=== PATIENT | female | born 1945 | race Caucasian/White ===

== ENCOUNTER 2020-09-18 14:03 | Inpatient (IN) | payer OTHER, MEDICARE ==
[2020-09-18] VITALS (29 sets, daily range): BP systolic 60–127; BP diastolic 17–75
[~2020-09-18] VITALS: Ht 165.1 cm; Wt 56.2 kg
[~2020-09-18 14:03] MED LIST: ROCURONIUM BROMIDE 50 MG/5 ML IV ONE
--- NOTE | 2020-09-18 14:10 | NUR ---
[facility] HOME, C/P THROAT DISCOMFORT S/P TAKING A PILL 15 MINS LAWYER REAL ESTATE. PT TACHY AND HYPOXIC LAWYER REAL ESTATE SATTING 87%. PATIENT A/OX4, PATIENT'S O2 DROPPING TO 80% EVEN WITH NRB MASK. DR. KAUR AT BEDSIDE FOR EVAL.
[2020-09-18] MEDS ORDERED: ZOLP10TA2 PO (14:14)
[2020-09-18] MEDS ORDERED: PRAV40TA3 PO (14:14)
[2020-09-18] MEDS ORDERED: [UNRECOGNIZED DRUG - CODE] PO (14:14)
[2020-09-18] MEDS ORDERED: AMLO-213 PO (14:14)
[2020-09-18] MEDS ORDERED: PYRI60TA PO (14:14)
[2020-09-18] MEDS ORDERED: ALPR0.5T8 PO (14:14)
--- NOTE | 2020-09-18 14:15 | NUR ---
IV LINE ESTABLISHED, BLOOD DRAWN. PATIENT PREPPED FOR INTUBATION. RT PAGED.
--- NOTE | 2020-09-18 14:27 | NUR ---
PATIENT INTUBATED WITH SIZE 7, 22CM ON THE LIP. COLOR CHANGED, BILATERAL CHEST RISE.
[2020-09-18] MEDS ORDERED: PROPOFOL 100 ML ONE (14:28)
--- NOTE | 2020-09-18 14:47 | NUR ---
ICU 254
[2020-09-18 14:58] LABS: BASOPHILS % (AUTO) 0.3 % (0.0-2.0); EOSINOPHILS % (AUTO) 0.1 % (0.0-6.0); HEMATOCRIT 42 % (33-45); HEMOGLOBIN 13.8 g/dL (11.5-14.8); LYMPHOCYTES # (AUTO) 2.1 /CMM (0.8-4.8); LYMPHOCYTES % (AUTO) 19.1 % (20.0-44.0); MEAN CORPUSCULAR HGB CONC 33 g/dl (31.0-36.0); MEAN CORPUSCULAR VOLUME 95 fL (82-100); MONOCYTES # (AUTO) 0.7 /CMM (0.1-1.30); MONOCYTES % (AUTO) 6.8 % (2.0-12.0); NEUTROPHILS # (AUTO) 7.9 /CMM (1.8-8.9); NEUTROPHILS % (AUTO) 73.7 % (43.0-81.0); PLATELET COUNT (AUTO) 226 /CMM (150-450); RED BLOOD CELL COUNT(AUTO) 4.41 MIL/uL (4.0-5.2); WHITE BLOOD COUNT (AUTO) 10.8 K/uL (4.3-11.0)
[2020-09-18] MEDS ORDERED: PROPOFOL 100 ML IV ONE (15:00)
--- NOTE | 2020-09-18 15:01 | NUR ---
[facility] [phone]
[2020-09-18 15:04] LABS: CARBON DIOXIDE 25 mmol/L (21-32); CHLORIDE 100 mmol/L (98-107); CREATININE 1.5 mg/dL (0.6-1.3); GLUCOSE 240 mg/dL (74-106); POTASSIUM 4.1 mmol/L (3.5-5.1); SODIUM SERUM 138 mmol/L (136-145); UREA NITROGEN, BLOOD 26 mg/dL (7-18)
--- NOTE | 2020-09-18 15:10 | NUR ---
NG INSERTED 56CM ON THE NOSE. SECURELY TAPED. PLACEMENT VERIFIED BY 2 NURSES AND XRAY.
--- NOTE | 2020-09-18 15:20 | NUR ---
COVID SWAB SENT TO LAB.
--- NOTE | 2020-09-18 15:24 | NUR ---
PROPOFOL TITRATE TO EFFECT. PATIENT CAME BACK FROM CT ACCOMPANIED BY NURSE AND RT. PATIENT IN STABLE CONDITION.
[2020-09-18] MEDS ORDERED: ETOMIDATE 2 MG/ML VIAL IV ONE (15:30)
[2020-09-18] MEDS ORDERED: CLINDAMYCIN 900 MG in IV D5W 100 ML IV ONE (15:30)
[2020-09-18] MEDS ORDERED: CEFTRIAXONE 1GM BAG (ER ONLY) 1 GM/50 ML PIGGYBACK IV ONE (15:30)
[2020-09-18] MEDS ORDERED: ROCURONIUM BROMIDE 100 MG/10 ML VIAL IV ONE (15:30)
[2020-09-18] MEDS ORDERED: CEFTRIAXONE 1GM BAG (ER ONLY) 50 ML IV ONE (15:31)
--- NOTE | 2020-09-18 15:48 | NUR ---
SOLARES CATHETER INSERTED FR16 VIA STERILE TECHNIQUE. URINE SENT TO LAB.
[2020-09-18] MEDS ORDERED: ACETAMINOPHEN 650 MG/SUPP.RECT RC PRN (16:00)
[2020-09-18] MEDS ORDERED: Z GUARD REMEDY 2 OZ OINT TP PRN (16:00)
--- NOTE | 2020-09-18 16:10 | NUR ---
REPORT GIVEN TO BOOKER PIERCE.
--- NOTE | 2020-09-18 16:57 | NUR ---
patient transferred to room via acls protocol, no distress noted. Endorsed care to Jena PIERCE. Propofol infusing to floor.
--- NOTE | 2020-09-18 17:00 | NUR ---
ICU/RN: RECEIVED PT FROM ER. RECEIVED REPORT FROM MIGUELITO. PT TRANSFERRED TO ICU VIA RNEY. PT INTUBATED ETT 7.0, 22CM AT THE LIP. PLACEMENT VERIFIED. ON VENT SETTINGS ORDERED, NO ACUTE DISTRESS NOTED. RECEIVED PT ON DIPRIVAN 25MCG/KG/MIN, WILL CONTINUE AND MONITOR. LEFT NARE NG TUBE IN PLACE, PLACEMENT VERIFIED. SINUS ON TELE. PIV'S PATENT AND INTACT, NO S/S OF INFECTION OR INFILTRATION NOTED. SKIN INTACT. ALL BELONGINGS BEDSIDE. ON BILATERAL SOFT WRIST RESTRAINTS, WILL ASSESS PER PROTOCOL. ALL NEEDS WILL BE ATTENDED TO, SAFETY MEASURES TAKEN, BED IN LOW POSITION, SIDE RAILS UP, CALL LIGHT WITHIN REACH.
[2020-09-18 17:02] LABS: ABG BASE EXCESS -2.6 mmol/L; ABG OXYGEN SATURATION 94.9 % (92.0-98.5); ABG PCO2 47.7 mmHg (35.0-45.0); ABG PH 7.315 (7.350-7.450); ABG PO2 83.6 mmHg (75.0-100.0); AaDO2 581.7 mmHg; COHb 0.6 % (0.5-1.5); MetHb 0.4 % (0.0-1.5); SITE, ABG Right Radial; VENT MODE, BG AC 16 450 +5 100%
--- NOTE | 2020-09-18 17:10 | NUR ---
ICU/RN: ABG RESULTS RELAYED TO . RECEIVED ORDERS. FOLLOWED THROUGH. VENT CHANGES DONE. WILL CONTINUE TO MONITOR.
[2020-09-18] MEDS: IV NS 0.9% 1,000 ML IV PRN (17:20)
[2020-09-18] MEDS: PROPOFOL 10MG/ML 50ML 50 ML IV PRN ×2 (17:25→23:23)
[2020-09-18] MEDS: PIPERACILLIN /TAZOBACTAM 2.25 G in IV D5W 50 ML IV SCH ×2 (18:08→23:23)
[2020-09-18] MEDS: VANCOMYCIN HCL 0.75 GM in IV D5W 250 ML IV SCH (18:36)
[2020-09-18] MEDS ORDERED: IV NS 0.9% 250 ML IV ONE (19:00)
--- NOTE | 2020-09-18 19:00 | NUR ---
ICU/RN: PT DESATURATING AND HYPOTENSIVE. RELAYED INFORMATION TO . RECEIVED ORDERS TO DECREASE PEEP TO 10, BOLUS OF 250 ML NS AND IF O2 SAT REMAINS BELOW 90% TO DO AN ABG. PT SUCTIONED. ORDERS FOR LEVOPHED RECEIVED. WILL FOLLOW THROUGH.
[2020-09-18] MEDS: NOREPINEPHRINE 8 MG in IV NS 0.9% 242 ML IV PRN (19:20)
--- NOTE | 2020-09-18 19:45 | NUR ---
ICU/INSTALLATION MANAGER RECEIVED REPORT FROM DAY NURSE. SEE FLOWSHEET FOR ASSESSMENT,THERE IS NO SKIN ISSUES THAT NEED TO BE ADDRESSED. PT IS ALERT X2-3, DESPITE BEING ON SEDATION, PT IS ABLE TO FOLLOW SIMPLE COMMANDS. PT IS ORALLY INTUBATED, TOLERATING CURRENT VENT SETTINGS WITH SATURATION AT 88-90%. PT WAS TURN AND REPOSITION FOR COMFORT AND CARE. WILL CONTINUE TO MONITOR THIS PT, NO ACUTE DISTRESS SEEN AT THIS TIME.DAY RN STATED LEVO FOR LOW BP, WILL CONTINUE TO MONITOR PT'S BP.
--- NOTE | 2020-09-18 20:10 | NUR ---
ICU/SERVER ASSISTANT NOTIFIED MD ABOUT PICC LINE DUE TO PT CURRENTLY ON LEVO, PT HOWEVER IS REFUSING IT. THEN OF WITH MIDLINE. LEVO IS AT 0.1MCG WITH BP IN THE 80'S. ALSO AT THIS TIME SEDATION IS GOING AT 20MCG FROM 25MCG WHICH WAS REPORTED. 2000-CHARGE NURSE CALLED NURSING OFFICE TO GET MIDLINE NURSE TO START LINE ON THE PT DUE TOP PRESSORS.
--- NOTE | 2020-09-18 21:10 | NUR ---
ICU/LABOR RELATIONS DIRECTOR 2029-NOTIFIED ORT. NURSE CIRO ABOUT LOW BP OF 70/32, THE LEVO WAS THEN INCREASED TO 0.2 FROM 0.1MCG. WILL CONTINUE TO CLOSELY MONITOR THIS PT'S BP. PT STILL REMAINS FAIRLY AWAKE DESPITE BEING ON SEDATION. 2100-PT IS VERY AWAKE THE SEDATION WAS INCREASED BY NIGHT RN CIRO, WILL CONTINUE TO MONITOR THIS PT AND HER Saturation.
[2020-09-18] MEDS: ONDANSETRON HCL/PF 4 MG/2 ML VIAL IVP PRN (23:23)
[2020-09-19] VITALS (95 sets, daily range): BP systolic 60–153; BP diastolic 16–62
[2020-09-19] MEDS ORDERED: PANTOPRAZOLE 40 MG VIAL IV SCH (01:00)
--- NOTE | 2020-09-19 01:00 | NUR ---
ICU/CHOKE REAMER 2330-PT WAS TURNED AND REPOSITIONED, HOWEVER PT JUST COMPLAINED ABOUT ABDOMINAL PAIN AND NAUSEA. NOTIFIED CHARGE NURSE TAMMY ABOUT THIS, ZOFRAN IVP GIVEN. WILL CONTINUE TO MONITOR THIS PT. 2400-BLOOD PRESSURE REMAINS LOW, NOTIFIED CHARGE NURSE WHO THEN INCREASED THE LEVO TO 0.3MCG FROM 0.2MCG, PT'S BP IS 88/45 WITH HEART RATE 78. WILL MONITOR THIS PT AND BP. 2430-OBTAINED AN ORDER FOR KUB FOR THE ABDOMINAL PAIN, PT HAS HX OF DIVERTICULITIS THIS WAS OBTAINED FROM SISTER WHO CALLED FROM [place].
--- NOTE | 2020-09-19 01:35 | NUR ---
ICU/CHRISTMAS TREE GROWER PT IS NOW GOING IN AND OUT OF JUNCTIONAL, FROM SINUS RHYTHM TO JUNCTIONAL. WILL MONITOR THIS PT.
--- NOTE | 2020-09-19 02:00 | NUR ---
ICU/COMMERCIAL COORDINATOR 0100-SISTER FILEMON CALLED FROM [place], GAVE UPDATE ON PT'S CONDITION. 0130-PT'S BELONGING LIST WAS UPDATED, PT HAS 140 IN DUMONT. A[place]O THERE IS 2 ENVELOPES OF DUMONT IN PT'S BELONGINGS. PT REFUSED TO PUT INTO SAFE. ALSO PT HAS CREDIT CARD, WHICH WERE UPDATED. 0200-PT'S BP IS LOW, NOTIFIED RN ABOUT THIS. PT IS 88/25 WITH HEART RATE 79, LEVO WAS INCREASED TO 0.5MCG FROM 0.4MCG. WILL MONITOR THIS PT AND HER BP.
--- NOTE | 2020-09-19 02:00 | NUR ---
ICU/WELDER PLASTIC-SISTER FILEMON [phone]
[2020-09-19] MEDS: PROPOFOL 10MG/ML 50ML 50 ML IV PRN ×4 (02:03→20:30)
[2020-09-19] MEDS ORDERED: NOREPINEPHRINE 8MG/250ML RTU 250 ML IV ONE (03:09)
--- NOTE | 2020-09-19 03:52 | NUR ---
ICU/CRAB BUTCHER PT WAS GIVEN AM CARE, PT TOLERATED THIS WELL. PT REMAINS ON CURRENT VENT SETTINGS. WILL CONTINUE TO MONITOR THIS PT AND HER SATURATION ALONG WITH HER BP. .
[2020-09-19] MEDS: NOREPINEPHRINE 8 MG in IV NS 0.9% 242 ML IV PRN ×2 (04:04→07:46)
--- NOTE | 2020-09-19 04:05 | NUR ---
ICU/BUSINESS BROKER INCREASED LEVO TO 0.6MCG FROM 0.5, 71/16 WITH A HEART RATE 79. FOR LOW BP, BY CHARGE NURSE. WILL MONITOR THIS PT'S BP.
[2020-09-19 04:37] LABS: BASOPHILS % (AUTO) 0.1 % (0.0-2.0); EOSINOPHILS % (AUTO) 0.5 % (0.0-6.0); HEMATOCRIT 37 % (33-45); HEMOGLOBIN 12.5 g/dL (11.5-14.8); LYMPHOCYTES # (AUTO) 0.8 /CMM (0.8-4.8); LYMPHOCYTES % (AUTO) 9.2 % (20.0-44.0); MEAN CORPUSCULAR HGB CONC 34 g/dl (31.0-36.0); MEAN CORPUSCULAR VOLUME 94 fL (82-100); MONOCYTES # (AUTO) 0.3 /CMM (0.1-1.30); MONOCYTES % (AUTO) 3.5 % (2.0-12.0); NEUTROPHILS # (AUTO) 7.9 /CMM (1.8-8.9); NEUTROPHILS % (AUTO) 86.7 % (43.0-81.0); PLATELET COUNT (AUTO) 101 /CMM (150-450); RED BLOOD CELL COUNT(AUTO) 3.95 MIL/uL (4.0-5.2); WHITE BLOOD COUNT (AUTO) 9.1 K/uL (4.3-11.0)
[2020-09-19 04:47] LABS: CALCIUM, SERUM 7.4 mg/dL (8.5-10.1); CARBON DIOXIDE 22 mmol/L (21-32); CHLORIDE 106 mmol/L (98-107); CREATININE 1.9 mg/dL (0.6-1.3); GLUCOSE 140 mg/dL (74-106); MAGNESIUM 1.7 mg/dL (1.8-2.4); PHOSPHORUS 2.8 mg/dL (2.5-4.9); POTASSIUM 4.2 mmol/L (3.5-5.1); SODIUM SERUM 140 mmol/L (136-145); UREA NITROGEN, BLOOD 33 mg/dL (7-18)
[2020-09-19 04:58] LABS: CHOLESTEROL 116 mg/dL (<200); HDL CHOLESTEROL 42 mg/dL (40-60); LDL 45 mg/dL (0-99); THYROID STIMULATING HORMONE 1.533 uIU/mL (0.358-3.74); TRIGLYCERIDES 285 mg/dL (30-150)
[2020-09-19] MEDS: IV NS 0.9% 1,000 ML IV PRN ×2 (05:15→23:01)
[2020-09-19] MEDS: PIPERACILLIN /TAZOBACTAM 2.25 G in IV D5W 50 ML IV SCH ×4 (05:25→23:01)
--- NOTE | 2020-09-19 05:55 | NUR ---
Pt received intubated on [facility] vent with noted setting. At 1900 per md orders peep was decreased from 10 to 5 due to low bp. MD was made aware of pt desaturating at peep of 5. Per MD follow up abg if spo2 remains below 90%. Pt tolerating vent setting well. No sob or distress noted. Vent to red outlet. Continue current care plan and monitor for any changes. Addendum: 09/19/20 at 0601 by NEIL LIZAMA RT Amended: Links added.
--- NOTE | 2020-09-19 06:56 | NUR ---
ICU/SENIOR TECHNICAL SUPPORT ANALYST CRITICAL XRAY OF POSSIBLE PNEUMOTHORAX TO LEFT SIDE, CHARGE NURSE AWARE. RADIOLOGIST SAID TO FOLLOW UP IN 1 HOUR.
--- NOTE | 2020-09-19 09:22 | NUR ---
received pt from indoor landscape architect, calmly sedated on Diprivan at 25mcg, follows commands, SR, intubated, lungs congested, no edema, NG clamped, f/c OK output, receiving levo at 0.6mcg/min, v/s stable, no pain, pt turned and repositioned.
[2020-09-19] MEDS: PANTOPRAZOLE 40 MG VIAL IV SCH (09:47)
[2020-09-19] MEDS ORDERED: Magnesium 1GM/D5W 100ML PREMIX 100 ML IV SCH (10:00)
[2020-09-19] MEDS: ALBUTEROL HALF STRENGTH 1.25 MG/3 ML VIAL.NEB NEB SCH ×4 (10:54→23:55)
[2020-09-19] MEDS: IPRATROPIUM NEB FS 0.5 MG/2.5 ML AMPUL.NEB NEB SCH ×4 (10:54→23:55)
[2020-09-19] MEDS: NOREPINEPHRINE 32 MG in IV NS 0.9% 218 ML IV PRN ×2 (11:11→21:45)
--- NOTE | 2020-09-19 16:34 | NUR ---
pt is resting in the bed, sedated on diprivan at 30mcg, SR, on the vent, sat well, OK urine output, receiving levo at 0.8mcg, v/s stable, no pain, pt cleaned, changed and repositioned q2hrs.
[2020-09-19] MEDS: VANCOMYCIN HCL 0.75 GM in IV D5W 250 ML IV SCH (18:21)
--- NOTE | 2020-09-19 19:29 | NUR ---
VENTILATION EQUIPMENT TENDER RCD PT W/DX ASP PNA; PT IS NSR ON MONITOR WITH LEVOPHED @ 0.7 MCG/KG/MIN TO MAINTAIN SBP >90. SEDATED ON PROPOFOL @ 40 MCG/KG/MIN; PT EASILY WAKES UP DURING STIMULI; BSWR IN PLACE PT REACHES FOR ET TUBE BUT IS EASILY REORIENTED TO SITUATION. LEFT NARE NG TUBE CLAMPED. NPO STATUS AT THIS TIME. INTUBATED 7 @ 22 AC 16 450 95% +5. CONTINUE TO MONITOR.
[2020-09-20] VITALS (88 sets, daily range): BP systolic 83–134; BP diastolic 40–61
[2020-09-20] MEDS: PROPOFOL 10MG/ML 50ML 50 ML IV PRN ×8 (00:25→21:59)
[2020-09-20] MEDS: ALBUTEROL HALF STRENGTH 1.25 MG/3 ML VIAL.NEB NEB SCH ×6 (04:25→23:28)
[2020-09-20] MEDS: IPRATROPIUM NEB FS 0.5 MG/2.5 ML AMPUL.NEB NEB SCH ×6 (04:26→23:28)
[2020-09-20] MEDS: PIPERACILLIN /TAZOBACTAM 2.25 G in IV D5W 50 ML IV SCH ×4 (05:30→23:29)
--- NOTE | 2020-09-20 05:47 | NUR ---
RT NOTE Pt rec'd orally intubated via ETT #7.0 secured @ 22CM. Pt on [facility] vent on AC mode. Pt shows no signs of resp distress or sob. ETT is patent and secured. sx'd for thick mod amt of pale yellow secretions. Alarms are set and audible. vent plugged into red outlet. ambu bag bedside. Will continue to monitor closely. Addendum: 09/20/20 at 0549 by GLORY MOYA RT Amended: Links added.
[2020-09-20 05:50] LABS: BASOPHILS % (AUTO) 0.1 % (0.0-2.0); EOSINOPHILS % (AUTO) 0.6 % (0.0-6.0); HEMATOCRIT 31 % (33-45); HEMOGLOBIN 10.5 g/dL (11.5-14.8); LYMPHOCYTES # (AUTO) 0.6 /CMM (0.8-4.8); LYMPHOCYTES % (AUTO) 4.4 % (20.0-44.0); MEAN CORPUSCULAR HGB CONC 33 g/dl (31.0-36.0); MEAN CORPUSCULAR VOLUME 95 fL (82-100); MONOCYTES # (AUTO) 0.4 /CMM (0.1-1.30); MONOCYTES % (AUTO) 2.7 % (2.0-12.0); NEUTROPHILS # (AUTO) 12.8 /CMM (1.8-8.9); NEUTROPHILS % (AUTO) 92.2 % (43.0-81.0); PLATELET COUNT (AUTO) 61 /CMM (150-450); RED BLOOD CELL COUNT(AUTO) 3.31 MIL/uL (4.0-5.2); WHITE BLOOD COUNT (AUTO) 13.9 K/uL (4.3-11.0)
[2020-09-20 06:14] LABS: ALANINE AMINOTRANSFERASE 598 U/L (12-78); ALKALINE PHOSPHATASE 56 U/L (46-116); ASPARTATE AMINOTRANSFERASE 738 U/L (15-37); BILIRUBIN,TOTAL 0.4 mg/dL (0.2-1.0); CALCIUM, SERUM 6.9 mg/dL (8.5-10.1); CARBON DIOXIDE 19 mmol/L (21-32); CHLORIDE 108 mmol/L (98-107); CREATININE 1.8 mg/dL (0.6-1.3); GLUCOSE 120 mg/dL (74-106); PHOSPHORUS 4.4 mg/dL (2.5-4.9); POTASSIUM 4.2 mmol/L (3.5-5.1); SODIUM SERUM 139 mmol/L (136-145); TOTAL PROTEIN, SERUM 4.6 g/dL (6.4-8.2); UREA NITROGEN, BLOOD 28 mg/dL (7-18)
[2020-09-20] MEDS: IV NS 0.9% 1,000 ML IV PRN ×2 (06:16→21:59)
[2020-09-20] MEDS: HYDROCORTISONE SOD SUCCINATE 100 MG/2 ML VIAL IV SCH ×3 (06:16→21:21)
--- NOTE | 2020-09-20 06:55 | NUR ---
REFRACTORY WORKER TITRATED LEVOPHED TO 0.2 MCG/KG/MIN. CONTINUE TO MONITOR.
[2020-09-20 07:23] LABS: BAND % (MANUAL) 9 % (0.0-5.0); LYMPHOCYTES % (MANUAL) 4 % (16-48); MONOCYTES % (MANUAL) 4 % (0-11.0); NEUTROPHILS % (MANUAL) 83 (42-76)
--- NOTE | 2020-09-20 08:14 | NUR ---
received pt from night supervisor, sedated at 40mcg/min, SR, intubated sat well, on 85% fio2, lung congested, no edema, NG clamped, f/c good output, receiving levo at 0.2mcg, v/s stable, no pain, restraints on.
[2020-09-20] MEDS: PANTOPRAZOLE 40 MG VIAL IV SCH (08:46)
[2020-09-20 08:48] LABS: ABG BASE EXCESS -8.1 mmol/L; ABG OXYGEN SATURATION 90.4 % (92.0-98.5); ABG PCO2 32.3 mmHg (35.0-45.0); ABG PH 7.332 (7.350-7.450); ABG PO2 59.7 mmHg (75.0-100.0); AaDO2 332.6 mmHg; COHb 0.4 % (0.5-1.5); MetHb 0.5 % (0.0-1.5); O2Hb 89.6 % (94.0-97.0); PEEP,BG 10 cm H2O; SITE, ABG Left Radial; VT, ABG 450 mL
[2020-09-20] MEDS: NOREPINEPHRINE 32 MG in IV NS 0.9% 218 ML IV PRN (09:56)
[2020-09-20 12:26] LABS: IRON, SERUM 9 ug/dl (50-175); TOTAL IRON BINDING CAPACITY 163 ug/dl (250-450)
[2020-09-20 12:49] LABS: FERRITIN 273 ng/mL (8-388)
--- NOTE | 2020-09-20 16:30 | NUR ---
pt is resting in the bed, sedated on Diprivan at 40mcg, SR, intubated sat well on 65% fi02, good urine output, receiving levo at 0.1mcg, v/s stable, no pain, pt cleaned, changed and repositioned.
[2020-09-20] MEDS: VANCOMYCIN HCL 0.75 GM in IV D5W 250 ML IV SCH (17:44)
--- NOTE | 2020-09-20 19:00 | NUR ---
CHIP TUNER RCD PT W/DX ASP PNA; INTUBATED 7 @ 22 AC 16 450 65% +12. PT IS NSR ON MONITOR WITH LEVOPHED @0.06 MCG/KG/MIN TO MAINTAIN SBP >90. SEDATED ON PROPOFOL @ 40 MCG/KG/MIN; BSWR IN PLACE FOR SAFETY. LEFT NARE NG TUBE CLAMPED. NPO STATUS AT THIS TIME. SKIN INTACT. FOELY CATH DRAINING YELLOW URINE W/SEDIMENT. CONTINUE TO MONITOR.
--- NOTE | 2020-09-20 20:00 | NUR ---
OBSERVER HELPER PT APPEARS VERY SEDATED DECREASED DIPRIVAN TO 35 MCG/KG/MIN. CONTINUE TO MONITOR.
--- NOTE | 2020-09-20 20:00 | NUR ---
COMBATANT DIVER QUALIFIED LEVOPHED TITRATED OFF AT THIS TIME 110/54; LEVOPHED NEEDED FOR SBP>90. CONTINUE TO MONITOR.
--- NOTE | 2020-09-20 21:00 | NUR ---
BLOOD BANK ORDER CONTROL CLERK PT APPEARS VERY SEDATED DECREASED DIPRIVAN TO 30 MCG/KG/MIN. CONTINUE TO MONITOR.
--- NOTE | 2020-09-20 23:44 | NUR ---
RT NOTE Pt rec'd orally intubated via ETT #7.0 secured @ 22CM. Pt on [facility] vent on AC mode. Pt shows no signs of resp distress or sob. ETT is patent and secured. sx'd for thick small amt of pale yellow secretions. Alarms are set and audible. vent plugged into red outlet. ambu bag bedside. Will continue to monitor closely. Addendum: 09/20/20 at 2344 by GLORY MOYA RT Amended: Links added.
[2020-09-21] VITALS (69 sets, daily range): BP systolic 76–138; BP diastolic 41–70
[2020-09-21] MEDS: PROPOFOL 10MG/ML 50ML 50 ML IV PRN ×3 (03:15→21:51)
[2020-09-21 04:20] LABS: BASOPHILS % (AUTO) 0.2 % (0.0-2.0); EOSINOPHILS % (AUTO) 0.1 % (0.0-6.0); HEMATOCRIT 31 % (33-45); HEMOGLOBIN 10.2 g/dL (11.5-14.8); LYMPHOCYTES # (AUTO) 0.3 /CMM (0.8-4.8); LYMPHOCYTES % (AUTO) 1.9 % (20.0-44.0); MEAN CORPUSCULAR HGB CONC 33 g/dl (31.0-36.0); MEAN CORPUSCULAR VOLUME 93 fL (82-100); MONOCYTES # (AUTO) 0.6 /CMM (0.1-1.30); MONOCYTES % (AUTO) 3.5 % (2.0-12.0); NEUTROPHILS # (AUTO) 15.6 /CMM (1.8-8.9); NEUTROPHILS % (AUTO) 94.3 % (43.0-81.0); PLATELET COUNT (AUTO) 84 /CMM (150-450); RED BLOOD CELL COUNT(AUTO) 3.29 MIL/uL (4.0-5.2); WHITE BLOOD COUNT (AUTO) 16.5 K/uL (4.3-11.0)
[2020-09-21 05:06] LABS: BAND % (MANUAL) 7 % (0.0-5.0); LYMPHOCYTES % (MANUAL) 3 % (16-48); MONOCYTES % (MANUAL) 4 % (0-11.0); NEUTROPHILS % (MANUAL) 86 (42-76)
[2020-09-21] MEDS: HYDROCORTISONE SOD SUCCINATE 100 MG/2 ML VIAL IV SCH ×3 (05:30→20:45)
[2020-09-21] MEDS: PIPERACILLIN /TAZOBACTAM 2.25 G in IV D5W 50 ML IV SCH ×4 (05:30→23:26)
[2020-09-21 05:34] LABS: CARBON DIOXIDE 23 mmol/L (21-32); CHLORIDE 108 mmol/L (98-107); CREATININE 1.4 mg/dL (0.6-1.3); GLUCOSE 104 mg/dL (74-106); MAGNESIUM 2.7 mg/dL (1.8-2.4); PHOSPHORUS 4.1 mg/dL (2.5-4.9); POTASSIUM 4.2 mmol/L (3.5-5.1); SODIUM SERUM 139 mmol/L (136-145); UREA NITROGEN, BLOOD 27 mg/dL (7-18)
[2020-09-21] MEDS: ALBUTEROL HALF STRENGTH 1.25 MG/3 ML VIAL.NEB NEB SCH ×6 (05:36→23:36)
[2020-09-21] MEDS: IPRATROPIUM NEB FS 0.5 MG/2.5 ML AMPUL.NEB NEB SCH ×6 (05:36→23:36)
[2020-09-21 08:06] LABS: IMMUNOGLOBULIN A, SERUM 217 mg/dL (64-422); IMMUNOGLOBULIN G, SERUM 550 mg/dL (586-1602); IMMUNOGLOBULIN M, SERUM 77 mg/dL (26-217)
--- NOTE | 2020-09-21 08:25 | NUR ---
received pt from dental hygiene instructor, sedated on Diprivan at 35mcg, SR, intubated high peep, sat well, NPO, f/c good output, v/s stable, no pain, pt turned and repositioned.
[2020-09-21 08:52] LABS: ABG BASE EXCESS -3.2 mmol/L; ABG OXYGEN SATURATION 97.1 % (92.0-98.5); ABG PH 7.407 (7.350-7.450); ABG PO2 94.3 mmHg (75.0-100.0); AaDO2 332.2 mmHg; COHb 0.8 % (0.5-1.5); MetHb 0.3 % (0.0-1.5); SITE, ABG Right Radial; VENT MODE, BG AC 16 450 65% +12
[2020-09-21] MEDS: PANTOPRAZOLE 40 MG VIAL IV SCH (09:21)
[2020-09-21] MEDS: NOREPINEPHRINE 32 MG in IV NS 0.9% 218 ML IV PRN (13:25)
[2020-09-21 16:07] LABS: *ANA ANTI-CENTROMERE B AB 0.2 AI (0.0-0.9); *ANA ANTI-DNA(DS) AB, QN <1 IU/mL (0-9); *ANA ANTI-JO-1 <0.2 AI (0.0-0.9); *ANA ANTICHROMATIN ANTIBODY <0.2 AI (0.0-0.9); *ANA RNP ANTIBODIES <0.2 AI (0.0-0.9); *ANA SJOGREN'S ANTI-SS-A <0.2 AI (0.0-0.9); *ANA SJOGREN'S ANTI-SS-B <0.2 AI (0.0-0.9); *ANAANTI-SCLERODERMA-70 AB <0.2 AI (0.0-0.9); *ANASMITH AB <0.2 AI (0.0-0.9)
--- NOTE | 2020-09-21 16:32 | NUR ---
pt is resting in the bed, sedated on Diprivan at 30mcg, SR, intubated, sat well on 40% fi02 and peep of 10, NPO, f/c good urine output, receiving levo at 0.08mcg/min, v/s stable, no pain, pt cleaned, changed and repositioned.
[2020-09-21] MEDS ORDERED: NOREPINEPHRINE 8 MG in IV NS 0.9% 242 ML IV PRN (17:30)
[2020-09-21] MEDS: VANCOMYCIN HCL 0.75 GM in IV D5W 250 ML IV SCH (18:30)
--- NOTE | 2020-09-21 19:00 | NUR ---
RN NOTE RECEIVED SHIFT REPORT FROM CODY PIERCE, PATIENT IN BED, SEDATED, IN NO S/SX OF ACUTE DISTRESS AT THIS TIME. PATIENT'S BREATHING IS EVEN AND UNLABORED, WITH ET TUBE CONNECTED TO MECHANICAL VENTILATOR WITH SETTINGS PRESCRIBED, TOLERATING WELL, SATURATING AT 99%. PATIENT ON BEDSIDE MONITOR READING SR, HR IS 84. NOTED NASO GASTRIC TUBE AT LEFT NARE INTACT, PLACEMENT WAS CHECKED BY AUSCULTATION AND ASPIRATION OF GASTRIC CONTENTS. NPO STATUS MAINTAINED. NOTED LUIS ALFREDO MIDLINE INTACT WITH NS INFUSING AT 40 ML/HR, DIPRIVAN AT 30 MCG/KG/MIN, AND LEVOPHED AT 0.04 MCG/KG/MIN, IV LINE PATENT AND FLUSHING WELL,NO S/S OF INFECTION NOTED. SOFT RESTRAINTS NOTED AT BILATERAL WRISTS, VISUAL CHECKS DONE Q15 MINS, AND SKIN AND CIRCULATION WAS MONITORED. SOLARES CATHETER CONNECTED TO URINE BAG IN PLACE,DRAINING TO A CLEAR YELLOW URINE. SAFETY MEASURES IMPLEMENTED PER PROTOCOL. PATIENT BED ALARM IS ON. HEAD OF BED ELEVATED. BED IS LOCKED, IN LOWEST POSITION AND SIDE RAILS UP. CALL LIGHT WITHIN REACH OF THE PATIENT. WILL CONTINUE TO MONITOR AND REASSESS FOR ANY CHANGES.
[2020-09-22] VITALS (78 sets, daily range): BP systolic 84–147; BP diastolic 33–81
[2020-09-22] MEDS: PROPOFOL 10MG/ML 50ML 50 ML IV PRN ×7 (00:48→22:48)
[2020-09-22] MEDS: IV NS 0.9% 1,000 ML IV PRN (01:30)
[2020-09-22] MEDS: IPRATROPIUM NEB FS 0.5 MG/2.5 ML AMPUL.NEB NEB SCH ×6 (03:44→23:25)
[2020-09-22] MEDS: ALBUTEROL HALF STRENGTH 1.25 MG/3 ML VIAL.NEB NEB SCH ×6 (03:44→23:25)
[2020-09-22 04:38] LABS: BASOPHILS % (AUTO) 0.2 % (0.0-2.0); HEMATOCRIT 29 % (33-45); HEMOGLOBIN 9.6 g/dL (11.5-14.8); LYMPHOCYTES # (AUTO) 0.3 /CMM (0.8-4.8); LYMPHOCYTES % (AUTO) 1.4 % (20.0-44.0); MEAN CORPUSCULAR HGB CONC 34 g/dl (31.0-36.0); MEAN CORPUSCULAR VOLUME 92 fL (82-100); MONOCYTES # (AUTO) 0.7 /CMM (0.1-1.30); MONOCYTES % (AUTO) 3.7 % (2.0-12.0); NEUTROPHILS # (AUTO) 17.4 /CMM (1.8-8.9); NEUTROPHILS % (AUTO) 94.7 % (43.0-81.0); PLATELET COUNT (AUTO) 52 /CMM (150-450); RED BLOOD CELL COUNT(AUTO) 3.11 MIL/uL (4.0-5.2); WHITE BLOOD COUNT (AUTO) 18.4 K/uL (4.3-11.0)
[2020-09-22] MEDS: HYDROCORTISONE SOD SUCCINATE 100 MG/2 ML VIAL IV SCH ×3 (04:47→21:10)
[2020-09-22 04:57] LABS: ALBUMIN 1.9 g/dL (3.4-5.0); BILIRUBIN,DIRECT 0.3 mg/dL (0.0-0.2); BILIRUBIN,TOTAL 0.7 mg/dL (0.2-1.0); CALCIUM, SERUM 7.8 mg/dL (8.5-10.1); CREATININE 1.2 mg/dL (0.6-1.3); MAGNESIUM 2.6 mg/dL (1.8-2.4); PHOSPHORUS 2.5 mg/dL (2.5-4.9); POTASSIUM 3.6 mmol/L (3.5-5.1); TOTAL PROTEIN, SERUM 5.3 g/dL (6.4-8.2)
--- NOTE | 2020-09-22 05:00 | NUR ---
CRITICAL LAB VALUE: TELEPHONE CALL FROM LAB RELAYED CRITICAL LAB VALUE FOLLOWS: FIBRINOGEN 864, D-DIMER 20. BORING MACHINE OPERATOR PRODUCTION MADE AWARE. DR LANCASTER WAS NOTIFIED. NO NEW ORDERS RECEIVED.
[2020-09-22] MEDS: PIPERACILLIN /TAZOBACTAM 2.25 G in IV D5W 50 ML IV SCH ×4 (05:06→23:33)
[2020-09-22 05:15] LABS: LYMPHOCYTES % (MANUAL) 4 % (16-48); MONOCYTES % (MANUAL) 4 % (0-11.0); NEUTROPHILS % (MANUAL) 92 (42-76)
[2020-09-22] MEDS: VANCOMYCIN 500 MG in IV D5W 100ml IV SCH ×2 (05:32→18:31)
--- NOTE | 2020-09-22 06:00 | NUR ---
CRITICAL LAB: TELEPHONE CALL FROM RADIOLOGIST DR ACUÑA REGARDING CXR RESULT: B PULMONARY INFILTRATES, R APICAL PNEUMOTHORAX. DR LANCASTER WAS NOTIFIED. NO NEW ORDERS RECEIVED AND WAS ADVISED TO FF UP WITH PULMO IN AM FOR POSSIBLE CHEST TUBE PLACEMENT. DENTURE LABORATORY TECHNICIAN MADE AWARE.
--- NOTE | 2020-09-22 07:13 | NUR ---
RN NOTE PATIENT REMAINS IN ROOM. NO SIGNS OF RESPIRATORY DISTRESS. SATURATING >95 ON CURRENT VENT SETTINGS. SEDATED, WITH DIPRIVAN INFUSING AT 30 MCG/KG/MIN. SBP SUSTAINING >90. SAFETY MEASURES IMPLEMENTED, BED IN LOWEST POSITION, LOCKED, SIDE RAILS UP, CALL LIGHT WITHIN REACH. ALL NEEDS AND ORDERS ADDRESSED DURING THE SHIFT. ALL DUE MEDS GIVEN ORDERED. PATIENT KEPT CLEAN AND COMFORTABLE WITHIN THE SHIFT. ENDORSED CRITICAL LABS OF FIBRINOGEN AND D DIMER AND R APICAL PNEUMOTHORAX PER CXR 09/22/2020 0500. ENDORSED TO JULIANN RN FOR CONTINUATION OF CARE.
[2020-09-22 08:19] LABS: ABG BASE EXCESS -2.1 mmol/L; ABG OXYGEN SATURATION 92.2 % (92.0-98.5); ABG PCO2 31.6 mmHg (35.0-45.0); ABG PH 7.446 (7.350-7.450); ABG PO2 64.3 mmHg (75.0-100.0); AaDO2 184.6 mmHg; COHb 0.7 % (0.5-1.5); MetHb 0.2 % (0.0-1.5); O2Hb 91.4 % (94.0-97.0); SITE, ABG Left Brachial; VENT MODE, BG ac16 450 40% +5
[2020-09-22] MEDS: PANTOPRAZOLE 40 MG VIAL IV SCH (09:45)
--- NOTE | 2020-09-22 19:49 | NUR ---
RT NOTES PT RECEIVED ORALLY INTUBATED WITH 7.0 ETT SECURED AT 22CM AT THE LIP LINE ON [facility] VENT ON ORDERED AC MODE SETTINGS. NO SIGNS OF RESP DISTRESS/SOB NOTED. AIRWAY PATENT. FORESTRY PROFESSOR DONE. PT SUCTIONED. ALARMS SET AND AUDIBLE. AMBUBAG AT BEDSIDE. VENT PLUGGED INTO RED OUTLET. WILL CONT TO MONITOR. Addendum: 09/22/20 at 2346 by ZEB MITCHELL RT Amended: Links added.
--- NOTE | 2020-09-22 20:00 | NUR ---
RN NOTE RECEIVED PT IN BED SLEEPING AND RESPONDS TO TOUCH, AND AROUSABLE. PT IS TOLERATING VENT SETTING, UN LABORED BREATHING, SATING ABOVE 93%. DIPRIVAN RUNNING AT 40 MCG/KH/MIN.SAFETY MEASURES IN PLACE
--- NOTE | 2020-09-22 20:11 | NUR ---
COMMAND AND CONTROL CLOSING NOTE PATIENT COMFORTABLY SEDATED ON DIPRIVAN AT 40MGC/KG/MIN. WITH EPISODE OF DESATURATION, FIO2 INCREASED TO 45%. NO DISTRESS NOTED. FOR PLANNED WEANING IN THE MORNING. NGT PATENT, INTACT IN PLACE. SR ON MONITOR. F/C DRAINING BY GRAVITY. NO S/S OF PAIN OR DISCOMFORT. UPDATES GIVEN TO SISTER FILEMON. PATIENT KEPT CLEAN AND DRY. TURNED AND REPOSITIONED Q2 AND PRN. ALL DUE MEDS GIVEN. HOB ELEVATED. SIDE RAILS UP AND LOCKED. BED KEPT AT LOWEST POSITION. CONTINUITY OF CARE ENDORSED TO PM NURSE.
[2020-09-23] VITALS (33 sets, daily range): BP systolic 102–130; BP diastolic 53–76
[2020-09-23] MEDS: PROPOFOL 10MG/ML 50ML 50 ML IV PRN ×5 (02:33→20:45)
[2020-09-23] MEDS: ALBUTEROL HALF STRENGTH 1.25 MG/3 ML VIAL.NEB NEB SCH ×6 (03:29→23:42)
[2020-09-23] MEDS: IPRATROPIUM NEB FS 0.5 MG/2.5 ML AMPUL.NEB NEB SCH ×6 (03:29→23:42)
[2020-09-23 05:13] LABS: BASOPHILS % (AUTO) 0.2 % (0.0-2.0); EOSINOPHILS % (AUTO) 0.1 % (0.0-6.0); HEMATOCRIT 30 % (33-45); HEMOGLOBIN 9.9 g/dL (11.5-14.8); LYMPHOCYTES # (AUTO) 0.5 /CMM (0.8-4.8); LYMPHOCYTES % (AUTO) 4.3 % (20.0-44.0); MEAN CORPUSCULAR HGB CONC 34 g/dl (31.0-36.0); MEAN CORPUSCULAR VOLUME 93 fL (82-100); MONOCYTES % (AUTO) 8.3 % (2.0-12.0); NEUTROPHILS # (AUTO) 10.2 /CMM (1.8-8.9); NEUTROPHILS % (AUTO) 87.1 % (43.0-81.0); RED BLOOD CELL COUNT(AUTO) 3.17 MIL/uL (4.0-5.2); WHITE BLOOD COUNT (AUTO) 11.7 K/uL (4.3-11.0)
[2020-09-23 05:16] LABS: PLATELET COUNT (AUTO) 25 /CMM (150-450)
[2020-09-23 05:24] LABS: CREATININE 1.1 mg/dL (0.6-1.3); MAGNESIUM 2.6 mg/dL (1.8-2.4); POTASSIUM 3.7 mmol/L (3.5-5.1)
--- NOTE | 2020-09-23 05:30 | NUR ---
RN NOTE RECEIVED CRITICAL LAB PLT 25 SID CIS COORDINATOR AWARE, NO FURTHER ORDER RECEIVED. PER SID FOLLOW UP WITH DR DAVIS IN AM.
[2020-09-23] MEDS: HYDROCORTISONE SOD SUCCINATE 100 MG/2 ML VIAL IV SCH ×3 (05:37→20:27)
[2020-09-23 05:41] LABS: LYMPHOCYTES % (MANUAL) 4 % (16-48); MONOCYTES % (MANUAL) 7 % (0-11.0); NEUTROPHILS % (MANUAL) 89 (42-76)
[2020-09-23] MEDS: PIPERACILLIN /TAZOBACTAM 2.25 G in IV D5W 50 ML IV SCH (06:09)
[2020-09-23] MEDS: VANCOMYCIN 500 MG in IV D5W 100ml IV SCH ×2 (06:57→18:11)
--- NOTE | 2020-09-23 07:28 | NUR ---
RN NOTE PT REMAINED STABLE DURING MY SHIFT, NO ACUTE CHANGES REPORT GIVEN TO INCOMING SHIFT FOR SYLVIE.
--- NOTE | 2020-09-23 07:30 | NUR ---
RESEARCH BIOLOGIST PATIENT IN BED, NO S/S OF DISTRESS, ON T TUBE TRACH 05/22, AC 16, TV 450, FIO2 50%, PEEP 10, TOLERATING WELL, O2 SAT 98%, SEDATED USING PROPOFOL, SEDATION VACATION SCHEDULED FOR 0900, TELE MONITOR ON, SINUS RHYTHM, L NARE NG TUBE INTACT PLACEMENT VERIFIED, SOLARES CATHETER IN PLACE, DRAINING TIFFANY URINE WITH SEDIMENT, BILATERAL SOFT WRIST RESTRAINTS ON ASSESSING FREQUENTLY AND WILL RENEW ORDER TODAY, NPO, LUIS ALFREDO MIDLINE 18G, CLEAN DRY INTACT FLUSHES WELL, NS RUNNING AT 40ML/HR, BED IN LOWEST LOCKED POSITION, SAFETY MEASURES IN PLACE, RN STATIONED RIGHT OUTSIDE THE DOOR, WILL CONTINUE TO MONITOR.
[2020-09-23] MEDS: PANTOPRAZOLE 40 MG VIAL IV SCH (08:31)
[2020-09-23 09:54] LABS: ABG OXYGEN SATURATION 90.7 % (92.0-98.5); ABG PCO2 28.2 mmHg (35.0-45.0); ABG PH 7.466 (7.350-7.450); ABG PO2 56.1 mmHg (75.0-100.0); AaDO2 232.7 mmHg; MetHb 0.8 % (0.0-1.5); O2Hb 89.1 % (94.0-97.0); SITE, ABG Right Radial; VENT MODE, BG SIMV 4 45% +5
--- NOTE | 2020-09-23 10:20 | NUR ---
PRODUCT SAFETY TESTER SPOKE TO MD MINAYA, SAID IF PLATELETS ARE LESS THAN 20 WITH A FEVER TO TRANSFUSE PLATELETS, IF PATIENT DOES NOT HAVE A FEVER THEN ONLY TRANSFUSE IF PLATELETS ARE LESS THAN 10. UPDATED REPORT GIVEN. NO FURTHER ORDERS AT THIS TIME.
[2020-09-23] MEDS: IV NS 0.9% 1,000 ML IV PRN (10:41)
--- NOTE | 2020-09-23 12:00 | NUR ---
OUTPATIENT THERAPIST SPOKE TO DR ORTIZ ABOUT PATIENT STATUS AND UPDATED ORDERS FOR ANTIBIOTICS AND TUBE FEEDING. PLACED ORDERS AND VERIFIED WITH PHARMACY. NPO STATUS REMOVED.
[2020-09-23] MEDS ORDERED: MEROPENEM 1 G in IV NS 0.9% 100 ML IV SCH (13:00)
[2020-09-23] MEDS ORDERED: JEVITY 1.2 CAL 1,000 ML BOTTLE NG PRN (13:30)
[2020-09-23] MEDS: SUCRALFATE 1 G/10 ML UDC NG SCH ×2 (13:30→18:11)
[2020-09-23] MEDS: MEROPENEM 1 G in IV NS 0.9% 100 ML IV SCH (13:31)
[2020-09-23 14:07] LABS: *SPE ALBUMIN 2.7 g/dL (2.9-4.4); *SPE ALPHA-1-GLOBULIN 0.5 g/dL (0.0-0.4); *SPE ALPHA-2-GLOBULIN 0.9 g/dL (0.4-1.0); *SPE BETA GLOBULIN 0.7 g/dL (0.7-1.3); *SPE GLOBULIN, TOTAL 2.6 g/dL (2.2-3.9); *SPE M-SPIKE Not Observed g/dL (Not Observed); *SPEGAMMA GLOBULIN 0.6 g/dL (0.4-1.8)
[2020-09-23] MEDS: JEVITY 1.2 CAL 1,000 ML BOTTLE NG PRN (16:35)
--- NOTE | 2020-09-23 18:53 | NUR ---
LANG INTERPRETER PATIENT IN BED, NO S/S OF DISTRESS, ETT IN PLACE WITH MECHANICAL VENT ON AC MODE, O2 SAT 95%, SEDATED WITH PROPOFOL 35MCG/KG/MIN, SEDATION SCORE OF 3, NO BOWEL MOVEMENT TODAY, TELE MONITOR IN PLACE, SINUS RHYTHM, L NARE NG TUBE, JEVITY RUNNING AT 20ML/HR AND IS TO BE TITRATED UP TO 65ML/HR TOLERATED, SOLARES CATHETER IN PLACE DRAINING TIFFANY URINE WITH SEDIMENT, URINE OUTPUT 552, LUIS ALFREDO MIDLINE 18G, NS RUNNING AT 40ML/HR, CLEAN DRY AND INTACT, FLUSHES EASILY. WEAN SIMV BUT PAO2 WAS 56 SO INTUBATION WAS CONTINUED. BED IN LOWEST LOCKED POSITION, SAFETY MEASURES IN PLACE.
--- NOTE | 2020-09-23 19:01 | NUR ---
END OF SHIFT NOTE: PT HAD AN UNEVENTFUL SHIFT. PT RECEIVED 1 UNIT PRBCS PER MD ORDERS. TUBE FEEDING STARTED, GLUCERNA AT 20ML/HR, GOAL 65 ML/HR AT 1230. DAILY, WOUND CARE ELLIS WAS HERE BUT WILL COME BACK WHEN PCR RESULTS COME BACK. NO OPEN WOUNDS NOTED, LOTS OF SCARRING NOTED. PT CHECKED ON HOURLY AND PRN BY NURSING STAFF.
--- NOTE | 2020-09-23 19:35 | NUR ---
CARD PLAYER OPENING NOTE RECEIVED PT IN BED. SEDATED. STANDARD/UNIVERSAL ISOLATION PRECAUTIONS IN PLACE. PT IS FULL CODE. PRESENTS WITH TRACH 7 ETT 22 AC OF 16 TV 450 AND FIO2 50% PEEP OF 5. TOLERATING WELL. NO S/S OF RESP DISTRESS OR SOB. BREATHING IS EVEN AND UNLABORED AT THIS TIME. SATURATING WELL AT 98%. PT HAS LEFT NARE NGT. AUSCULTATED WITH ANOTHER RN TO CONFIRM PLACEMENT. RESIDUAL IS LESS THAN 10CC AT THIS TIME. PT HAS JEVITY 1.2 RUNNING AT 20ML/HR. NGT FLUSHED AND PATENT. IV SITE LUIS ALFREDO MIDLINE FLUSHED ASEPTICALLY. NS RUNNING AT 40ML/HR AND DIPRIVAN AT 35MCG/KG/MIN. SOFT UCHE WRIST RESTRAINTS ON. CIRCULATION CHECKED. DVT PUMPS ON. HOB ELEVATED, SIDE RAILS UP X 2, BED IS LOCKED IN LOWEST POSITION WITH ALARM ON. ID BAND ON. WILL CONTINUE TO CLOSELY MONITOR. Addendum: 09/23/20 at 2018 by PAULINO AMBROSIO RN PT HAS SOLARES CATHETER PRESENT DRAINING YELLOW URINE, SOME SEDIMENT NOTED WILL CONT TO MONITOR.
--- NOTE | 2020-09-23 19:40 | NUR ---
PT SEDATED WITH PROPOFOL RUNNING AT 35MCG/KG/MIN. AROUSABLE, PT ABLE TO OPEN EYES. CALM AT THIS TIME.
--- NOTE | 2020-09-23 20:14 | NUR ---
PT NOTED TO HAVE TEMP OF 99.4 AT THIS TIME. ENDORSED BY AM NURSE THAT PT HAD LOW GRADE TEMP, PT RUNS WARM AND RESPONDS WELL TO NON PHARM COOLING MEASURES. TOOK OFF ONE BLANKET FOR NOW. WILL CONTINUE TO MONITOR.
--- NOTE | 2020-09-23 22:00 | NUR ---
TEMP REASSESSED 99.0 WILL CONTINUE TO MONITOR
[2020-09-24] VITALS (26 sets, daily range): BP systolic 96–123; BP diastolic 54–70
[2020-09-24] MEDS: MEROPENEM 1 G in IV NS 0.9% 100 ML IV SCH ×2 (00:30→12:31)
[2020-09-24] MEDS: SUCRALFATE 1 G/10 ML UDC NG SCH ×4 (00:30→17:05)
[2020-09-24] MEDS: PROPOFOL 10MG/ML 50ML 50 ML IV PRN ×7 (00:40→21:41)
--- NOTE | 2020-09-24 03:30 | NUR ---
PT TEMP NOTED TO BE 98.8
[2020-09-24] MEDS: IPRATROPIUM NEB FS 0.5 MG/2.5 ML AMPUL.NEB NEB SCH ×6 (03:47→23:22)
[2020-09-24] MEDS: ALBUTEROL HALF STRENGTH 1.25 MG/3 ML VIAL.NEB NEB SCH ×6 (03:47→23:22)
--- NOTE | 2020-09-24 04:32 | NUR ---
UPON ROUNDS, PT OCCASIONALLY OPENS EYES. ABLE TO SLIGHTLY MOVE FINGERS AND TOES. PT WAKES UP INTERMITTENTLY. AROUSABLE TO TOUCH. SEDATION APPROPRIATE.
[2020-09-24 05:08] LABS: BASOPHILS % (AUTO) 0.2 % (0.0-2.0); EOSINOPHILS % (AUTO) 0.1 % (0.0-6.0); HEMATOCRIT 30 % (33-45); HEMOGLOBIN 10.1 g/dL (11.5-14.8); LYMPHOCYTES # (AUTO) 0.6 /CMM (0.8-4.8); LYMPHOCYTES % (AUTO) 5.9 % (20.0-44.0); MEAN CORPUSCULAR HGB CONC 34 g/dl (31.0-36.0); MEAN CORPUSCULAR VOLUME 93 fL (82-100); MONOCYTES # (AUTO) 0.5 /CMM (0.1-1.30); MONOCYTES % (AUTO) 4.8 % (2.0-12.0); NEUTROPHILS # (AUTO) 8.5 /CMM (1.8-8.9); RED BLOOD CELL COUNT(AUTO) 3.21 MIL/uL (4.0-5.2); WHITE BLOOD COUNT (AUTO) 9.6 K/uL (4.3-11.0)
[2020-09-24 05:10] LABS: PLATELET COUNT (AUTO) 40 /CMM (150-450)
[2020-09-24 05:20] LABS: CALCIUM, SERUM 7.8 mg/dL (8.5-10.1); POTASSIUM 3.6 mmol/L (3.5-5.1)
[2020-09-24 05:26] LABS: MAGNESIUM 2.5 mg/dL (1.8-2.4); PHOSPHORUS 3.3 mg/dL (2.5-4.9)
[2020-09-24 05:58] LABS: BAND % (MANUAL) 2 % (0.0-5.0); LYMPHOCYTES % (MANUAL) 7 % (16-48); MONOCYTES % (MANUAL) 5 % (0-11.0); NEUTROPHILS % (MANUAL) 86 (42-76)
--- NOTE | 2020-09-24 06:00 | NUR ---
BED BATH DONE. NO BM NOTED.
[2020-09-24] MEDS: HYDROCORTISONE SOD SUCCINATE 100 MG/2 ML VIAL IV SCH ×3 (06:04→20:24)
[2020-09-24] MEDS: VANCOMYCIN 500 MG in IV D5W 100ml IV SCH ×2 (06:04→17:05)
--- NOTE | 2020-09-24 07:10 | NUR ---
BAG LINER NOTE RECEIVED PT IN BED. SEDATED. WITH 7 ETT 22 AC OF 16 TV 450 AND FIO2 50% PEEP OF 5. TOLERATING WELL. NO S/S OF RESP DISTRESS OR SOB NOTED AT THIS TIME. PT HAS LEFT NARE NGT. RESIDUAL IS LESS THAN 10CC AT THIS TIME. PT HAS JEVITY 1.2 RUNNING AT 20ML/HR. NGT FLUSHED AND PATENT. IV SITE LUIS ALFREDO MIDLINE FLUSHED ASEPTICALLY. NS RUNNING AT 40ML/HR AND DIPRIVAN AT 35MCG/KG/MIN. SOFT UCHE WRIST RESTRAINTS ON. CIRCULATION CHECKED. DVT PUMPS ON. SAFETY MEASURES IN PLACE, HOB ELEVATED, SIDE RAILS UP X 2, BED IS LOCKED IN LOWEST POSITION WITH ALARM ON. WILL CONTINUE TO MONITOR.
--- NOTE | 2020-09-24 07:20 | NUR ---
VIDEO GAME ENGINEER CLOSING NOTES NO SIGNIFICANT CHANGES. PT TOLERATED BED BATH. STILL ON MONITOR PRESENTING WITH NSR HR 72 AT THIS TIME. NO CHANGE IN VENT SETTINGS. PT HAS NO S/S OF RESPIRATORY DISTRESS AT THIS TIME. NO SHORTNESS OF BREATH. BREATHING IS EVEN AND UNLABORED. STILL WITH NASOGASTRIC TUBE LEFT NARE. TRACH/ETT 7 22. AC 16. TV AT 450. FIO2 50 AND PEEP OF 5. SEDATED. PT STILL ON PROPOFOL AT 35 MC/KG/MIN. IV SITES PATENT. NO S/S OF INFILTRATION NOTED. STILL RUNNING JEVITY AT 20ML/HR. NO RESIDUAL NOTED. SOLARES CATHETER STILL PRESENTING WITH YELLOW URINE WITH SEDIMENT. HOB ELEVATED 40 DEGREES. SAFETY PRECAUTIONS IN PLACE. PT ID BAND ON. BED IS LOCKED IN LOWEST POSITION WITH ALARM ON. ENDORSED TO RUY AT PT BED SIDE FOR CONTINUATION OF CARE.
[2020-09-24 10:07] LABS: *ANCANTIMYELOPEROXIDASE (MPO) <9.0 U/mL (0.0-9.0); *ANCANTIPROTEINASE 3 (PR-3) AB <3.5 U/mL (0.0-3.5)
[2020-09-24] MEDS: JEVITY 1.2 CAL 1,000 ML BOTTLE NG PRN (16:27)
[2020-09-24] MEDS: IV NS 0.9% 1,000 ML IV PRN (17:06)
--- NOTE | 2020-09-24 19:00 | NUR ---
GLAZE SUPERVISOR NOTE PT IN BED RESTING COMFORTABLY IN MODERATE HIGH BACK REST. SEDATED. WITH 7 ETT 22 AC OF 16 TV 450 AND FIO2 50% PEEP OF 5. TOLERATING WELL. NO S/S OF RESP DISTRESS OR SOB NOTED. PT HAS LEFT NARE NGT. PT HAS JEVITY 1.2 RUNNING AT 35ML/HR. NGT FLUSHED AND PATENT. IV SITE LUIS ALFREDO MIDLINE FLUSHED ASEPTICALLY. NS RUNNING AT 40ML/HR AND DIPRIVAN AT 35MCG/KG/MIN. SOFT UCHE WRIST RESTRAINTS ON. CIRCULATION CHECKED. SAFETY MEASURES IN PLACE, SIDE RAILS UP X 2, BED IS LOCKED IN LOWEST POSITION WITH ALARM ON. WILL ENDORSE TO SALVAGE MACHINE OPERATOR NURSE FOR SYLVIE.
--- NOTE | 2020-09-24 19:20 | NUR ---
CUSTOMS COMPLIANCE DIRECTOR OPENING NOTES: Rec'd pt in bed, sedated and intubated 7/22cm at the lip. On mechanical ventilation tolerating settings well. No resp distress noted. SR on tele monitor. Left nare NGT in place, patent, location verified, minimal residual noted. Jevity infusing at 35ml/hr. LUIS ALFREDO midline patent and flushed w/ NS infusing at 40ml/hr and Diprivan infusing at 35mcg/kg/min. Bilateral soft wrist restraints in place. Will check circulation per protocol. Carvalho catheter in place patent and draining urine via gravity. Safety measures in place. Will continue to monitor.
--- NOTE | 2020-09-24 21:44 | NUR ---
RT pt received on mechanical vent with current settings, intubated with ett size 7.0, 22 @lip. vent plugged in to red outlet. alarms on and audible. ambu bag at [facility]. ett patent and secure. minimal secretions suctioned via ett. no sob, no resp distress.
[2020-09-25] VITALS (29 sets, daily range): BP systolic 103–162; BP diastolic 53–100
[2020-09-25] MEDS: PROPOFOL 10MG/ML 50ML 50 ML IV PRN ×3 (00:05→08:26)
[2020-09-25] MEDS: SUCRALFATE 1 G/10 ML UDC NG SCH ×4 (00:39→17:23)
[2020-09-25] MEDS: MEROPENEM 1 G in IV NS 0.9% 100 ML IV SCH ×2 (00:39→12:33)
[2020-09-25] MEDS: IPRATROPIUM NEB FS 0.5 MG/2.5 ML AMPUL.NEB NEB SCH ×6 (03:05→23:37)
[2020-09-25] MEDS: ALBUTEROL HALF STRENGTH 1.25 MG/3 ML VIAL.NEB NEB SCH ×6 (03:05→23:38)
[2020-09-25 04:31] LABS: BASOPHILS % (AUTO) 0.2 % (0.0-2.0); EOSINOPHILS % (AUTO) 0.1 % (0.0-6.0); HEMATOCRIT 31 % (33-45); HEMOGLOBIN 10.2 g/dL (11.5-14.8); LYMPHOCYTES # (AUTO) 0.6 /CMM (0.8-4.8); LYMPHOCYTES % (AUTO) 5.1 % (20.0-44.0); MEAN CORPUSCULAR HGB CONC 33 g/dl (31.0-36.0); MEAN CORPUSCULAR VOLUME 94 fL (82-100); MONOCYTES # (AUTO) 0.4 /CMM (0.1-1.30); MONOCYTES % (AUTO) 3.3 % (2.0-12.0); NEUTROPHILS # (AUTO) 11.2 /CMM (1.8-8.9); NEUTROPHILS % (AUTO) 91.3 % (43.0-81.0); PLATELET COUNT (AUTO) 64 /CMM (150-450); RED BLOOD CELL COUNT(AUTO) 3.29 MIL/uL (4.0-5.2); WHITE BLOOD COUNT (AUTO) 12.3 K/uL (4.3-11.0)
[2020-09-25 04:46] LABS: CARBON DIOXIDE 25 mmol/L (21-32); CHLORIDE 114 mmol/L (98-107); GLUCOSE 225 mg/dL (74-106); MAGNESIUM 2.6 mg/dL (1.8-2.4); PHOSPHORUS 2.8 mg/dL (2.5-4.9); POTASSIUM 3.7 mmol/L (3.5-5.1); SODIUM SERUM 147 mmol/L (136-145); UREA NITROGEN, BLOOD 36 mg/dL (7-18)
[2020-09-25 05:04] LABS: LYMPHOCYTES % (MANUAL) 7 % (16-48); MONOCYTES % (MANUAL) 3 % (0-11.0); NEUTROPHILS % (MANUAL) 90 (42-76)
[2020-09-25] MEDS: HYDROCORTISONE SOD SUCCINATE 100 MG/2 ML VIAL IV SCH ×3 (05:29→21:18)
[2020-09-25] MEDS: VANCOMYCIN 500 MG in IV D5W 100ml IV SCH ×2 (05:30→17:23)
--- NOTE | 2020-09-25 07:02 | NUR ---
CONSTRUCTION CRAFT LABORER CLOSING NOTES: No acute changes noted throughout shift. Remains intubated on mechanical ventilation tolerating settings well. SR on tele monitor. LUIS ALFREDO midline patent and infusing Diprivan at 35mcg/kg/min and NS at 40ml/hr. Carvalho cath patent and draining urine. Kept clean/dry. All due meds given as ordered. Safety measures in place. Will endorse to oncoming nurse for SYLVIE.
--- NOTE | 2020-09-25 07:10 | NUR ---
FASHION PATTERNMAKER NOTE RECEIVED PT IN BED. SEDATED. WITH 7 ETT 22 AC OF 16 TV 450 AND FIO2 50% PEEP OF 5. TOLERATING WELL. NO S/S OF RESP DISTRESS OR SOB NOTED AT THIS TIME. PT HAS LEFT NARE NGT. RESIDUAL IS LESS THAN 10CC AT THIS TIME. PT HAS JEVITY 1.2 RUNNING AT 35ML/HR. NGT FLUSHED AND PATENT. IV SITE LUIS ALFREDO MIDLINE NS RUNNING AT 40ML/HR AND DIPRIVAN AT 35MCG/KG/MIN. SOFT UCHE WRIST RESTRAINTS ON. CIRCULATION CHECKED. DVT PUMPS ON. SAFETY MEASURES IN PLACE, HOB ELEVATED, SIDE RAILS UP X 2, BED IS LOCKED IN LOWEST POSITION WITH ALARM ON. WILL CONTINUE TO MONITOR.
[2020-09-25] MEDS ORDERED: DC PROPOFOL WHEN EXTUBATED XX PRN (09:00)
--- NOTE | 2020-09-25 10:21 | NUR ---
vent changes below per Dr. Duran for weaning trial: simv 4 ps 15 peep +5 fio2 45% pt is fully awake and follow commands. RR 24 26 BPM HR 93 - 96 bpm spo2 97% no increase work of breathing noted Addendum: 09/25/20 at 1024 by CINDY MCKEON RT Amended: Links added.
[2020-09-25 11:36] LABS: ABG BASE EXCESS -0.3 mmol/L; ABG OXYGEN SATURATION 93.3 % (92.0-98.5); ABG PCO2 29.7 mmHg (35.0-45.0); ABG PH 7.494 (7.350-7.450); ABG PO2 66.8 mmHg (75.0-100.0); AaDO2 220.3 mmHg; COHb 0.5 % (0.5-1.5); MetHb 0.2 % (0.0-1.5); O2Hb 92.6 % (94.0-97.0); PEEP,BG 5 cm H2O; SITE, ABG Right Radial; VENT MODE, BG SIMV 4 / PS 15; VT, ABG 450 mL
--- NOTE | 2020-09-25 12:10 | NUR ---
pt is awake and follow commands @ [address] Carson placed into high flow nasal cannula due to PaO2 67 mmhg. spo2 100% RR 20 BPM HR 110 bpm no sob noted Addendum: 09/25/20 at 1220 by CINDY MCKEON RT Amended: Links added.
[2020-09-25 14:09] LABS: *ANCA ATYPICAL p-ANCA <1:20 titer (Neg:<1:20); *ANCA CYTOPLASMIC (C-ANCA) <1:20 titer (Neg:<1:20); *ANCA PERINUCLEAR (P-ANCA) <1:20 titer (Neg:<1:20)
--- NOTE | 2020-09-25 17:44 | NUR ---
RN NOTES PATIENT NOTED WITH BP OF 160/93, CALLED AND SPOKE TO DR. ANTONIO AND GAVE UPDATES REGARDING PATIENT STATUS. PER MD TO ORDER AMLODIPINE 5MG DAILY. ORDER MADE AND CARRIED OUT. WILL CONTINUE TO MONITOR.
[2020-09-25] MEDS: AMLODIPINE BESYLATE 5 MG TABLET NG SCH (18:09)
[2020-09-25] MEDS: IV NS 0.9% 1,000 ML IV PRN (18:33)
--- NOTE | 2020-09-25 18:57 | NUR ---
[employer] PLASTERER NOTE PT IN BED RESTING COMFORTABLY IN MODERATE HIGH BACK REST. ALERT, UNABLE TO SPEAK CLEARLY, FOLLOW SIMPLE COMMANDS, ON HIGH FLOW OXYGEN NC 60LPM AND FIO2 60%. TOLERATING WELL. NO S/S OF RESP DISTRESS OR SOB NOTED. PT HAS LEFT NARE NGT. HOLD FEEDING, CAN GIVE MEDICATION ONLY. NGT FLUSHED AND PATENT. IV SITE LUIS ALFREDO MIDLINE FLUSHED ASEPTICALLY. NS RUNNING AT 40ML/HR. SOLARES CATHETER INTACT DRAINING CLEAR YELLOW URINE, ALL DUE MEDS GIVEN, ORAL CARE PROVIDED, ALL NEEDS MET, SAFETY MEASURES IN PLACE, SIDE RAILS UP X 2, BED IS LOCKED IN LOWEST POSITION WITH ALARM ON. 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
--- NOTE | 2020-09-25 19:45 | NUR ---
ICU/EVP [employer] PT IS NPO EXCEPT MEDS ONLY, PT HAD O/G-TUBE THAT WAS D/C'D. THIS IN TURN THEN D/C'S THE TUBE FEEDING. Addendum: 09/25/20 at 1947 by TRISTEN MARTÍNEZ EVP [employer] PT IS LEFT NARE N/G TUBE THAT IS CLAMPED. BUT PT IS STILL NPO EXCEPT MEDS
--- NOTE | 2020-09-25 19:45 | NUR ---
ICU/DENTAL ASSOCIATE RECEIVED REPORT FROM DAY NURSE. SEE FLOWSHEET FOR ASSESSMENT,THERE IS A NEW SKIN ISSUES THAT WAS FOUND AND NEEDED TO BE ADDRESSED. PT IS ALERT X2, PT IS A LITTLE LETHARGIC BUT ABLE TO FOLLOW SIMPLE COMMANDS. PT IS ON HIGH FLOW N/C, TOLERATING THIS WELL WITH SATURATION AT 95%. PT WAS TURN AND REPOSITION FOR COMFORT AND CARE. WILL CONTINUE TO MONITOR THIS PT, NO ACUTE DISTRESS SEEN AT THIS TIME. PT IS NPO AT THIS TIME WITH A LEFT NARE N/G-TUBE, MEDS ONLY PER MD CROOK.
--- NOTE | 2020-09-25 20:00 | NUR ---
ICU/CHECK CLERK UPON DOING 1999 ASSESSMENT, FOUND SACRAL REDNESS THAT IS BLANCHABLE. THIS WAS ADDRESSED ON FLOWSHEET AND ALSO PHOTO DOCUMENTATION WAS DONE. WOUND CONSULT WAS DONE, CHARGE NURSE MADE AWARE.
--- NOTE | 2020-09-25 20:41 | NUR ---
ICU/SAW SHARPENER FOLLOWED UP WITH PT THAT SHE WOULD LIKE A FLU SHOT BEFORE DISCHARGE HOME AND SHE HAD ALREADY RECEIVED THE PNA VACCINE.
--- NOTE | 2020-09-25 22:30 | NUR ---
ICU/LICENSING COURT MAGISTRATE PT WAS GIVEN ORAL CARE. PT WAS THEN PROVIDED PM CARE, WHICH SHE TOLERATED WELL. PT REMAINS ON CURRENT HIGH FLOW SETTING, WITH SATURATION AT 100%. PT WAS TURNED AND REPOSITIONED FOR COMFORT AND CARE. CALL LIGHT WITHIN REACH, NO ACUTE DISTRESS SEEN. WILL CONTINUE TO MONITOR THIS PT.
[2020-09-26] VITALS (36 sets, daily range): BP systolic 126–163; BP diastolic 73–99
[2020-09-26] MEDS: SUCRALFATE 1 G/10 ML UDC NG SCH ×4 (00:44→17:12)
[2020-09-26] MEDS: MEROPENEM 1 G in IV NS 0.9% 100 ML IV SCH ×2 (00:45→12:57)
--- NOTE | 2020-09-26 00:45 | NUR ---
ICU/BILLIARD TABLE MECHANIC PT APPEARS TO HAVE LOSE GREEN, WATERY, STOOL. PT WAS CLEANED AND REPOSTIONED FOR COMFORT AND CARE. WILL CONTINUE TO MONITOR THIS PT.
--- NOTE | 2020-09-26 02:06 | NUR ---
RT NOTE INCREASED FIO2 TO 70% DUE TO SOB. SPO2 IMPROVED. RN TRISTEN AWARE. WILL CONTINUE TO MONITOR CLOSELY.
--- NOTE | 2020-09-26 02:30 | NUR ---
ICU/FERMENTATION ENGINEER PT WAS GIVEN ORAL CARE. PT WAS THEN PROVIDED AM CARE, WHICH SHE TOLERATED WELL. PT REMAINS ON CURRENT HIGH FLOW SETTING, WITH SATURATION AT 100%. PT WAS TURNED AND REPOSITIONED FOR COMFORT AND CARE. CALL LIGHT WITHIN REACH, NO ACUTE DISTRESS SEEN. WILL CONTINUE TO MONITOR THIS PT
[2020-09-26] MEDS: IPRATROPIUM NEB FS 0.5 MG/2.5 ML AMPUL.NEB NEB SCH ×6 (03:32→23:52)
[2020-09-26] MEDS: ALBUTEROL HALF STRENGTH 1.25 MG/3 ML VIAL.NEB NEB SCH ×6 (03:32→23:52)
[2020-09-26] MEDS: HYDROCORTISONE SOD SUCCINATE 100 MG/2 ML VIAL IV SCH (04:36)
[2020-09-26 04:49] LABS: CALCIUM, SERUM 8.3 mg/dL (8.5-10.1); CARBON DIOXIDE 30 mmol/L (21-32); CHLORIDE 113 mmol/L (98-107); CREATININE 0.8 mg/dL (0.6-1.3); GLUCOSE 146 mg/dL (74-106); POTASSIUM 3.1 mmol/L (3.5-5.1); SODIUM SERUM 149 mmol/L (136-145); UREA NITROGEN, BLOOD 30 mg/dL (7-18)
[2020-09-26] MEDS: VANCOMYCIN 500 MG in IV D5W 100ml IV SCH ×2 (05:15→17:12)
--- NOTE | 2020-09-26 06:22 | NUR ---
ICU/BIG DATA SOFTWARE ENGINEER 09/26/20-CHEST XRAY SHOWS MORE FLUID ON THE LEFT LUNG, MORE SO THAN YESTERDAY XRAY. PER RADIOLOGIST FROM [facility]. NOTIFIED CHARGE NURSE AND WILL PASS ALONG TO DAY NURSE. Addendum: 09/26/20 at 0633 by TRISTEN MARTÍNEZ BIG DATA SOFTWARE ENGINEER THE MATTE CUTTER WAS NOTIFED DR CAIN, WHICH SHE SAID OK, THANK YOU NO NEW ORDERS.
--- NOTE | 2020-09-26 07:00 | NUR ---
RN NOTES RECEIVED PT ON BED, A/Ox2, UNABLE TO SPEAK CLEARLY, FOLLOWS SIMPLE COMMANDS, ON HIGH FLOW OXYGEN NC 60LPM AND FIO2 60%. TOLERATING WELL. O2 SAT WNL, NO S/S OF RESP DISTRESS OR SOB NOTED. PT HAS LEFT NARE NGT. NPO EXCEPT MEDS , NGT FLUSHED AND PATENT. LUIS ALFREDO MIDLINE SITE CLEAN, DRY AND INTACT, NS RUNNING AT 40ML/HR. SOLARES CATHETER INTACT DRAINING CLEAR YELLOW URINE, ORAL CARE PROVIDED, ALL NEEDS MET, SAFETY MEASURES IN PLACE, SIDE RAILS UP X 3, BED IS LOCKED AN IN LOWEST POSITION, CALL LIGHT WITHIN EASY REACH , WILL CONTINUE TO MONITOR .
[2020-09-26] MEDS: AMLODIPINE BESYLATE 5 MG TABLET NG SCH (08:13)
[2020-09-26 08:36] LABS: ABG BASE EXCESS 2.1 mmol/L; ABG OXYGEN SATURATION 93.9 % (92.0-98.5); ABG PCO2 35.1 mmHg (35.0-45.0); ABG PH 7.478 (7.350-7.450); ABG PO2 67.2 mmHg (75.0-100.0); AaDO2 394.2 mmHg; COHb 0.7 % (0.5-1.5); MetHb 0.1 % (0.0-1.5); O2Hb 93.1 % (94.0-97.0); SITE, ABG Right Brachial; VENT MODE, BG HIGH FLOW 60 L / 70% FIO2
[2020-09-26] MEDS ORDERED: IV 1/2NS 1000 ML 1,000 ML IV PRN (10:00)
[2020-09-26] MEDS: POTASSIUM CL. PREMIX PERIPHER. 50 ML IV SCH ×4 (11:01→14:26)
--- NOTE | 2020-09-26 12:00 | NUR ---
RN NOTES PT IS ANXIOUS AND WORRIED AT TIMES , EMOTION SUPPORT GIVEN , VSS STABLE , CONTINUE TO MONITOR .
[2020-09-26] MEDS: methylPREDNISolone SOD SUCC 125 MG/2ML VIAL IV SCH ×2 (12:15→20:19)
[2020-09-26] MEDS: PYRIDOSTIGMINE BROMIDE 60 MG TABLET PO SCH (15:48)
--- NOTE | 2020-09-26 18:00 | NUR ---
RN NOTES PT REMANINS ON HIGH FLOW O2 , VSS STABLE, PT HAD SMALL FORMED STOOL x2 ON THIS SHIFT, 1/NS AT 40CC /HR RUNNING VIA R UPPER ARM MIDLINE, SITE CLEAN, DRY AND INTACT, SR UP x3, CALL LIGHT WITHIN EASY REACH, BED LOCKED AND IN LOWEST POSITION, WILL ENDORSE TO DRY CLEANER PRESSER NURSE FOR CONTINUITY OF CARE .
--- NOTE | 2020-09-26 19:30 | NUR ---
RN NOTES RECEIVED PATIENT IN BED AOX2, UNCLEAR SPEECH BUT ABLE TO FOLLOW SIMPLE COMMANDS. BREATHING NORMAL NO SOB NOTED. DENIES ANY PAIN OR DISCOMFORT. RESPIRATION EVEN NON LABORED. CONTINUES IN HIGH FLOW OXYGEN VIA NC 60L/MIN FIO2 71%. SATURATING 100% AT THIS TIME. LT NARE NGT IN PLACE, PLACEMENT CHECKED VIA AUSCULTATION, NPO STATUS EXCEPT MEDS. TELE MONITOR READING SR/ST HR IN 97 TO 100. LUIS ALFREDO MIDLINE INTACT PATENT AND FLUSHES WELL. NS IS RUNNING AT 40ML/HR. F/C INTACT CLEAR URINE DARNING WELL TO GRAVITY. SAFETY MEASURES IN PLACE, BED IN LOW AND LOCKED POSITION SIDE RAILS UP, CALL LIGHT WITHIN REACH. WILL CONT TO MONITOR FOR SYLVIE.
--- NOTE | 2020-09-26 22:00 | NUR ---
PATIENT HAVE A LOOSE STOOL. PATIENT WAS CLEANED AND REPOSITION FOR COMFORT. DUE MEDICATION WERE GIVEN TOLERATED WELL. ALL SAFETY MEASURES IN PLACE,,,CALL LIGHT WITHIN REACH. WILL CON TO MONITOR.
--- NOTE | 2020-09-26 23:55 | NUR ---
PRN TYLENOL WAS GIVEN FOR GENERAL BODY ACHES 02/08. REPOSITION FOR COMFORT. WILL CONT TO MONITOR. ALL SAFETY MAINTAINED.
[2020-09-27] VITALS (39 sets, daily range): BP systolic 130–151; BP diastolic 66–94
[2020-09-27] MEDS: SUCRALFATE 1 G/10 ML UDC NG SCH ×4 (00:12→17:08)
--- NOTE | 2020-09-27 00:42 | NUR ---
PRN TYLENOL WAS EFFECTIVE PAIN LOWER TO 1/10. WILL CONT TO MONITOR.
[2020-09-27] MEDS: MEROPENEM 1 G in IV NS 0.9% 100 ML IV SCH ×2 (01:08→12:29)
[2020-09-27] MEDS: ONDANSETRON HCL/PF 4 MG/2 ML VIAL IVP PRN ×3 (02:01→16:12)
--- NOTE | 2020-09-27 02:01 | NUR ---
PRN ZOFRAN GIVEN PATIENT C/O NAUSEA NO EPISODE OF VOMITING NOTED. MOUTH CARE PROVIDED TOLERATED WELL. CONTINUES ON HIGH FLOE OXYGEN SATURATING 98%. WILL CONT TO MONITOR.
--- NOTE | 2020-09-27 02:30 | NUR ---
PER PT PRN ZOFRAN WAS EFFECTIVE NAUSEA SUBSIDED. WILL CONT TO MONITOR.
[2020-09-27] MEDS: ALBUTEROL HALF STRENGTH 1.25 MG/3 ML VIAL.NEB NEB SCH ×6 (03:33→23:23)
[2020-09-27] MEDS: IPRATROPIUM NEB FS 0.5 MG/2.5 ML AMPUL.NEB NEB SCH ×6 (03:33→23:23)
[2020-09-27 04:33] LABS: BASOPHILS % (AUTO) 0.1 % (0.0-2.0); CALCIUM, SERUM 7.8 mg/dL (8.5-10.1); CREATININE 0.7 mg/dL (0.6-1.3); HEMATOCRIT 34 % (33-45); HEMOGLOBIN 10.9 g/dL (11.5-14.8); LYMPHOCYTES # (AUTO) 0.4 /CMM (0.8-4.8); LYMPHOCYTES % (AUTO) 2.2 % (20.0-44.0); MEAN CORPUSCULAR HGB CONC 33 g/dl (31.0-36.0); MEAN CORPUSCULAR VOLUME 93 fL (82-100); MONOCYTES # (AUTO) 0.7 /CMM (0.1-1.30); MONOCYTES % (AUTO) 4.2 % (2.0-12.0); NEUTROPHILS # (AUTO) 15.3 /CMM (1.8-8.9); NEUTROPHILS % (AUTO) 93.5 % (43.0-81.0); PLATELET COUNT (AUTO) 56 /CMM (150-450); POTASSIUM 3.6 mmol/L (3.5-5.1); RED BLOOD CELL COUNT(AUTO) 3.58 MIL/uL (4.0-5.2); WHITE BLOOD COUNT (AUTO) 16.4 K/uL (4.3-11.0)
[2020-09-27] MEDS: methylPREDNISolone SOD SUCC 125 MG/2ML VIAL IV SCH ×3 (05:00→20:10)
[2020-09-27 05:15] LABS: BAND % (MANUAL) 4 % (0.0-5.0); EOSINOPHILS % (MANUAL) 2 % (0-4); LYMPHOCYTES % (MANUAL) 3 % (16-48); MONOCYTES % (MANUAL) 7 % (0-11.0); NEUTROPHILS % (MANUAL) 84 (42-76)
[2020-09-27] MEDS: VANCOMYCIN 500 MG in IV D5W 100ml IV SCH ×2 (06:05→17:08)
--- NOTE | 2020-09-27 07:25 | NUR ---
RN NOTES PATIENT RESTED WELL DURING SHIFT. NO S/S OF DISTRESS NOTED. BREATHING NORMAL NO SOB NOTED. CONTINUES ON HIGH FLOW AT 60L/MIN SATURATING WELL 98%. LUIS ALFREDO MIDLINE INTACT FLUSHES WELL. ROUTINE MEDICATIONS WERE GIVEN ALONG WITH PRN'S TOLERATED WELL. KEPT CLEAN DRY AND COMFORTABLE. SAFETY MAINTAINED. ENDORSE TO AM NURSE FOR SYLVIE.
--- NOTE | 2020-09-27 08:19 | NUR ---
pt is resting in the bed, alert, follows commands, communicative, SR, on high flow at 60% fi02, sat OK, NG clamped, f/c good output, v/s stable, no pain, pt turned and repositioned.
[2020-09-27] MEDS: PYRIDOSTIGMINE BROMIDE 60 MG TABLET PO SCH (09:08)
[2020-09-27] MEDS: AMLODIPINE BESYLATE 5 MG TABLET NG SCH (09:09)
[2020-09-27 11:27] LABS: ALBUMIN 1.9 g/dL (3.4-5.0); BILIRUBIN,DIRECT 0.2 mg/dL (0.0-0.2); BILIRUBIN,TOTAL 0.5 mg/dL (0.2-1.0); TOTAL PROTEIN, SERUM 5.7 g/dL (6.4-8.2)
[2020-09-27] MEDS: IV D5W 1,000 ML IV PRN (12:25)
--- NOTE | 2020-09-27 16:23 | NUR ---
pt is resting in the bed, alert, follows commands, SR, High flow02, sat 92-92% at 70% fi02, NG clamped, f/c good output, v/s stable, no pain, c/o lower abd discomfort, Zofran ivp given, pt cleaned, changed and repositioned.
--- NOTE | 2020-09-27 19:30 | NUR ---
RN NOTES PATIENT IN BED AWAKE ALERT. BREATHING NORMAL NO SOB NOTED. DENIES ANY PAIN OR DISCOMFORT. RESPIRATION EVEN NON LABORED. CONTINUES IN HIGH FLOW OXYGEN VIA NC 60L/MIN FIO2 70%. SATURATING 100% AT THIS TIME. TELE MONITOR READING ST HR IN 100. LT NARE NGT IN PLACE, PLACEMENT CHECKED VIA AUSCULTATION, NPO STATUS EXCEPT MEDS. LUIS ALFREDO MIDLINE INTACT PATENT AND FLUSHES WELL. D5W IS RUNNING AT 50ML/HR. F/C INTACT CLEAR URINE DARNING WELL TO GRAVITY. SAFETY MEASURES IN PLACE, BED IN LOW AND LOCKED POSITION SIDE RAILS UP, CALL LIGHT WITHIN REACH. WILL CONT TO MONITOR FOR SYLVIE.
--- NOTE | 2020-09-27 21:00 | NUR ---
ROUTINE MEDICATIONS WERE TOLERATED WELL. SAFETY MAINTAINED. WILL CONT TO MONITOR.
--- NOTE | 2020-09-27 22:00 | NUR ---
MOUTH CARE PROVIDED, REPOSITION FOR COMFORT. SAFETY MEASURES IN PLACE. WILL CONT TO MONITOR.
[2020-09-28] VITALS (25 sets, daily range): BP systolic 124–157; BP diastolic 59–96
--- NOTE | 2020-09-28 | NUR ---
CONTINUES ON HIGH FLOW. VITAL SIGNS REMAINED WNL. KEPT CLEAN DRY AND COMFORTABLE. SAFETY MAINTAINED. WILL CONT TO MONITOR.
[2020-09-28] MEDS: SUCRALFATE 1 G/10 ML UDC NG SCH ×4 (00:12→17:28)
[2020-09-28] MEDS: MEROPENEM 1 G in IV NS 0.9% 100 ML IV SCH ×2 (01:00→12:05)
[2020-09-28] MEDS: IPRATROPIUM NEB FS 0.5 MG/2.5 ML AMPUL.NEB NEB SCH ×5 (03:24→19:47)
[2020-09-28] MEDS: ALBUTEROL HALF STRENGTH 1.25 MG/3 ML VIAL.NEB NEB SCH ×5 (03:24→19:47)
--- NOTE | 2020-09-28 05:00 | NUR ---
BED BATH GIVEN PATIENT TOLERATED WELL. REPOSITION FOR COMFORT. KEPT CLEAN DRY AND COMFORTABLE. WILL CONT TO MONITOR. SAFETY MAINTAINED.
[2020-09-28 05:18] LABS: CALCIUM, SERUM 8.2 mg/dL (8.5-10.1); CREATININE 0.7 mg/dL (0.6-1.3); POTASSIUM 3.7 mmol/L (3.5-5.1)
[2020-09-28] MEDS: VANCOMYCIN 500 MG in IV D5W 100ml IV SCH ×2 (06:01→17:28)
--- NOTE | 2020-09-28 07:05 | NUR ---
RN NOTES PATIENT RESTED WELL DURING SHIFT NO S/S OF ACUTE DISTRESS NOTED. CONTINUES ON HIGH FLOW 60L WITH FIO2@70% SATURATING WELL. NO PRN'S WERE GIVEN DURING SHIFT. LUIS ALFREDO MIDLINE INTACT PATENT D5W RUNNING AT 50ML/HR WITH ATB TOLERATING WELL. F/C INTACT CLEAR URINE DARNING WELL TO GRAVITY. SAFETY MEASURES IN PLACE, BED IN LOW AND LOCKED POSITION SIDE RAILS UP, CALL LIGHT WITHIN REACH. WILL ENDORSE TO AM NURSE FOR SYLVIE.
--- NOTE | 2020-09-28 07:10 | NUR ---
RN NOTES RECEIVED PATIENT IN BED AOX2, UNCLEAR SPEECH BUT ABLE TO FOLLOW SIMPLE COMMANDS. BREATHING NORMAL NO SOB NOTED. ON HIGH FLOW OXYGEN VIA NC 60L/MIN FIO2 70%. SATURATING 100% AT THIS TIME. LT NARE NGT IN PLACE, PLACEMENT CHECKED VIA AUSCULTATION, NPO STATUS EXCEPT MEDS. TELE MONITOR READING SR/ST. LUIS ALFREDO MIDLINE INTACT PATENT AND FLUSHES WELL. NS IS RUNNING AT 50ML/HR. F/C INTACT CLEAR URINE DARNING WELL TO GRAVITY. SAFETY MEASURES IN PLACE, BED IN LOW AND LOCKED POSITION SIDE RAILS UP, CALL LIGHT WITHIN REACH. WILL CONT TO MONITOR FOR SYLVIE.
--- NOTE | 2020-09-28 08:02 | NUR ---
RT Pt received on high flow nasal cannula 60L and 70% FiO2, SpO2 88%. FiO2 increased to 100%. Pt is awake and alert, no SOB or respiratory distress noted. Addendum: 09/28/20 at 1136 by LEVI MAYNARD RT Amended: Links added.
[2020-09-28 08:24] LABS: ABG BASE EXCESS 7.6 mmol/L; ABG OXYGEN SATURATION 89.6 % (92.0-98.5); ABG PCO2 47.2 mmHg (35.0-45.0); ABG PH 7.456 (7.350-7.450); ABG PO2 57.1 mmHg (75.0-100.0); AaDO2 608.7 mmHg; COHb 0.6 % (0.5-1.5); MetHb 0.2 % (0.0-1.5); O2Hb 88.9 % (94.0-97.0); SITE, ABG Right Radial; VENT MODE, BG High Flow NC - 100%
[2020-09-28] MEDS: methylPREDNISolone SOD SUCC 125 MG/2ML VIAL IV SCH ×2 (08:42→20:24)
[2020-09-28] MEDS: AMLODIPINE BESYLATE 5 MG TABLET NG SCH (08:43)
[2020-09-28] MEDS ORDERED: PYRIDOSTIGMINE BROMIDE 60 MG TABLET PO SCH (09:00)
[2020-09-28] MEDS: IV D5W 1,000 ML IV PRN (09:44)
--- NOTE | 2020-09-28 10:04 | NUR ---
RN NOTES SPOKE TO DR. TRAN, PER MD TO CHANGE THE TIME OF THE MESTINON 60MG TO BE GIVEN, NEXT DOSE TO GIVE AT 15:00 THEN 20:00. THEN IN THE AM GIVE AT 06:00, 12:00 AND 20:00. CALLED AND SPOKE TO PHARMACY TO CHANGE.
[2020-09-28] MEDS: PYRIDOSTIGMINE BROMIDE 60 MG TABLET PO SCH ×2 (14:54→20:24)
--- NOTE | 2020-09-28 18:25 | NUR ---
RN NOTES PATIENT IN BED RESTING COMFORTABLY IN MODERATE HIGH BACK REST. A/O X2, ABLE TO MAKE NEEDS KNOWN. ON HIGH FLOW OXYGEN VIA NC 60L/MIN FIO2 95%, TOLERATING WELL. LT NARE NGT IN PLACE, CLAMPED, NPO STATUS EXCEPT MEDS. TELE MONITOR READING SR/ST. LUIS ALFREDO MIDLINE INTACT PATENT AND FLUSHES WELL. NS IS RUNNING AT 50ML/HR. F/C INTACT CLEAR YELLOW URINE DARNING WELL TO GRAVITY. SAFETY MEASURES IN PLACE, BED IN LOW AND LOCKED POSITION SIDE RAILS UP, CALL LIGHT WITHIN REACH. WILL ENDORSE TO MSWS NURSE FOR SYLVIE.
--- NOTE | 2020-09-28 19:30 | NUR ---
RN NOTES RECEIVED PATIENT RESTING IN BED NO S/S OF ACUTE DISTRESS NOTED. RESPIRATION EVEN NON LABORED. ON RA SATURATING 100% AT THIS TIME. TELE MONITOR SHOWS SR IN 85. GENESIS PICC LINE IN PLACE, INTACT PATENT FLUSHES WELL. CONTINUES ON HEPARIN/LEVO DRIP TOLERATING WELL. F/C INTACT CLEAR URINE DARNING WELL TO GRAVITY. SAFETY MEASURES IN PLACE, BED IN LOW AND LOCKED POSITION SIDE RAILS UP, CALL LIGHT WITHIN REACH. WILL CONT TO MONITOR FOR SYLVIE. Addendum: 09/29/20 at 0559 by TOMMIE LERMA RN ERROR CHARTING-WRONG PATIENT.
--- NOTE | 2020-09-28 19:30 | NUR ---
RN NOTES PATIENT IN BED AWAKE ALERT. BREATHING NORMAL NO SOB NOTED. CONTINUES ON HIGH FLOW OXYGEN VIA NC 60L/MIN FIO2 95%. RESPIRATION EVEN NON LABORED. SATURATING 95-98% AT THIS TIME. TELE MONITOR READING ST HR IN 80. LT NARE NGT IN PLACE, PLACEMENT CHECKED VIA AUSCULTATION, NGT CLAMPED EXCEPT MEDS. NPO STATUS . LUIS ALFREDO MIDLINE INTACT PATENT AND FLUSHES WELL. D5W IS RUNNING AT 50ML/HR. F/C INTACT DARK YELLOW URINE DARNING WELL TO GRAVITY. SAFETY MEASURES IN PLACE, BED IN LOW AND LOCKED POSITION SIDE RAILS UP, CALL LIGHT WITHIN REACH. WILL CONT TO MONITOR FOR SYLVIE.
--- NOTE | 2020-09-28 22:00 | NUR ---
REPOSITION FOR COMFORT, PARTIAL LINEN CHANGED. SAFETY MAINTAINED. WILL CONT TO MONITOR.
[2020-09-29] VITALS (29 sets, daily range): BP systolic 113–153; BP diastolic 47–96
--- NOTE | 2020-09-29 | NUR ---
CONTINUES ON HIGH FLOW. VITAL SIGNS REMAINED WNL. KEPT CLEAN DRY AND COMFORTABLE. SAFETY MAINTAINED. WILL CONT TO MONITOR.
[2020-09-29] MEDS: IPRATROPIUM NEB FS 0.5 MG/2.5 ML AMPUL.NEB NEB SCH ×7 (00:12→23:30)
[2020-09-29] MEDS: ALBUTEROL HALF STRENGTH 1.25 MG/3 ML VIAL.NEB NEB SCH ×7 (00:12→23:30)
[2020-09-29] MEDS: SUCRALFATE 1 G/10 ML UDC NG SCH ×4 (00:48→17:25)
[2020-09-29] MEDS: MEROPENEM 1 G in IV NS 0.9% 100 ML IV SCH ×2 (01:00→14:31)
--- NOTE | 2020-09-29 02:30 | NUR ---
MOUTH CARE PROVIDED. KEPT CLEAN DRY AND COMFORTABLE. SATURATING WELL. WILL CON TO MONITOR.
[2020-09-29 04:19] LABS: BASOPHILS # (AUTO) 0.1 /CMM (0.0-0.2); BASOPHILS % (AUTO) 0.5 % (0.0-2.0); HEMATOCRIT 35 % (33-45); HEMOGLOBIN 11.5 g/dL (11.5-14.8); LYMPHOCYTES # (AUTO) 0.3 /CMM (0.8-4.8); LYMPHOCYTES % (AUTO) 1.2 % (20.0-44.0); MEAN CORPUSCULAR HGB CONC 33 g/dl (31.0-36.0); MEAN CORPUSCULAR VOLUME 93 fL (82-100); MONOCYTES # (AUTO) 0.9 /CMM (0.1-1.30); MONOCYTES % (AUTO) 3.4 % (2.0-12.0); NEUTROPHILS # (AUTO) 25.6 /CMM (1.8-8.9); NEUTROPHILS % (AUTO) 94.9 % (43.0-81.0); PLATELET COUNT (AUTO) 102 /CMM (150-450); RED BLOOD CELL COUNT(AUTO) 3.78 MIL/uL (4.0-5.2)
--- NOTE | 2020-09-29 04:30 | NUR ---
BED BATH GIVEN PATIENT TOLERATED WELL. KEPT CLEAN DRY AND COMFORTABLE.
[2020-09-29 04:31] LABS: CALCIUM, SERUM 7.9 mg/dL (8.5-10.1); CREATININE 0.7 mg/dL (0.6-1.3); POTASSIUM 3.6 mmol/L (3.5-5.1)
[2020-09-29] MEDS: VANCOMYCIN 500 MG in IV D5W 100ml IV SCH (06:04)
[2020-09-29] MEDS: PYRIDOSTIGMINE BROMIDE 60 MG TABLET PO SCH ×3 (06:08→21:16)
--- NOTE | 2020-09-29 07:21 | NUR ---
RN NOTES PATIENT RESTED WELL DURING SHIFT. NO PRN'S WERE GIVEN. ROUTINE MEDS GIVEN TOLERATED WELL. CONTINUES ON HIGH FLOW 60L FIO2-95% SATING WELL. LUIS ALFREDO MIDLINE INTACT PATENT FLUSHES WELL. F/C INTACT CLEAR URINE DARNING WELL TO GRAVITY. NATE FROM RADIOLOGY CALLED FOR X-RAY RESULTS POSSIBLE INCREASED RIGHT LUNG LUNG OPACITY, ENDORSE TO AM NURSE TO FOLLOW UP. SAFETY MEASURES IN PLACE, BED IN LOW AND LOCKED POSITION SIDE RAILS UP, CALL LIGHT WITHIN REACH. ENDORSE TO AM NURSE FOR SYLVIE.
--- NOTE | 2020-09-29 07:45 | NUR ---
RN OPENING NOTE: RECEIVED PATIENT IN BED THIS MORNING. PATIENT IS ALERT X2. SR IN THE 70S NOTED ON BEDSIDE MONITOR. NO SIGNS OF ACUTE DISTRESS NOTED AT THIS TIME. SATING WELL ON HI FLOW. NGT CLAMPED. SOLARES DRAINING URINE. LUIS ALFREDO MIDLINE FLUSHING WELL, C/D/I, NO SIGNS OF COMPLICATIONS NOTED. SAFETY MEASURES IMPLEMENTED, BED IN LOWEST POSITION, LOCKED, SIDE RAILS UP, CALL LIGHT WITHIN REACH. WILL CONTINUE TO MONITOR PATIENT FOR CHANGES.
[2020-09-29] MEDS: methylPREDNISolone SOD SUCC 125 MG/2ML VIAL IV SCH (08:21)
[2020-09-29] MEDS: AMLODIPINE BESYLATE 5 MG TABLET NG SCH (08:22)
[2020-09-29] MEDS: IV D5W 1,000 ML IV PRN (08:39)
[2020-09-29] MEDS: ONDANSETRON HCL/PF 4 MG/2 ML VIAL IVP PRN ×2 (09:18→17:23)
--- NOTE | 2020-09-29 10:30 | NUR ---
PER PATIENT, SHE IS NOT ALLERGIC TO TYLENOL AND SHE TAKES IT AT HOME
[2020-09-29] MEDS: ACETAMINOPHEN 325 MG TABLET PO SCH (10:47)
[2020-09-29] MEDS: diphenhydrAMINE HCL 25 MG CAPSULE PO SCH (10:47)
[2020-09-29] MEDS: IMMUNE GLOBULIN 10% IV SCH (10:53)
--- NOTE | 2020-09-29 11:53 | NUR ---
TITRATED IVIG TO 34 ML/HR. NO SIGNS OF REACTION, PATIENT HAS NO COMPLAINTS AT THIS TIME.
--- NOTE | 2020-09-29 12:53 | NUR ---
TITRATED IVIG TO 68 ML/HR PER PHARMACY INSTRUCTIONS. NO SIGNS OF COMPLICATIONS NOTED. PATIENT HAS NO COMPLAINTS AT THIS TIME.
[2020-09-29] MEDS ORDERED: IMMUNE GLOBULIN 10 GM/100 ML VIAL IV ONE (14:27)
[2020-09-29] MEDS: VANCOMYCIN 0.75 GM in IV D5W 250 ML IV SCH (17:25)
[2020-09-29 17:59] LABS: BILIRUBIN,URINE NEGATIVE (NEGATIVE); BLOOD, URINE SMALL Ery/uL (NEGATIVE); COLOR,URINE YELLOW (YELLOW); LEUKOCYTE ESTERASE ,URINE NEGATIVE (NEGATIVE); NITRITE, URINE NEGATIVE (NEGATIVE); PROTEIN,URINE TRACE mg/dl (NEGATIVE); UGLUCOSE 250 MG/DL mg/dL (NEGATIVE); UROBILINOGEN,URINE 0.2 EU/dL (0.2)
[2020-09-29] MEDS ORDERED: MISCELLANEOUS MED 1 EA EA XX ONE (18:00)
[2020-09-29 18:11] LABS: BACTERIA,URINE 1+ /HPF (None Seen); SQUAMOUS EPITHELIAL CELL,UR 0-2 /HPF (None Seen)
[2020-09-29] MEDS: JEVITY 1.2 CAL 1,000 ML BOTTLE GT PRN (18:37)
--- NOTE | 2020-09-29 18:55 | NUR ---
RN CLOSING NOTE: PATIENT REMAINS IN BED. NO SIGNS OF ACUTE DISTRESS NOTED AT THIS TIME. SR IN THE 70S NOTED ON BEDSIDE MONITOR. SAFETY MEASURES IMPLEMENTED, BED IN LOWEST POSITION, LOCKED, SIDE RAILS UP, CALL LIGHT WITHIN REACH. WILL ENDORSE TO ONCOMING SHIFT RN FOR CONTINUITY OF CARE.
[2020-09-29] MEDS: CEFEPIME 2 GM in IV D5W 100 ML IV SCH (21:16)
[2020-09-30] VITALS (34 sets, daily range): BP systolic 95–152; BP diastolic 52–92
--- NOTE | 2020-09-30 00:05 | NUR ---
pt refused breathing tx at this time. rn aware Addendum: 09/30/20 at 0005 by MJ HANKINS RT Amended: Links added.
[2020-09-30] MEDS: SUCRALFATE 1 G/10 ML UDC NG SCH ×4 (00:35→17:15)
[2020-09-30] MEDS: IPRATROPIUM NEB FS 0.5 MG/2.5 ML AMPUL.NEB NEB SCH ×6 (03:30→23:30)
[2020-09-30] MEDS: ALBUTEROL HALF STRENGTH 1.25 MG/3 ML VIAL.NEB NEB SCH ×6 (03:30→23:30)
[2020-09-30] MEDS: ONDANSETRON HCL/PF 4 MG/2 ML VIAL IVP PRN ×2 (03:39→08:32)
[2020-09-30 04:40] LABS: BASOPHILS % (AUTO) 0.1 % (0.0-2.0); HEMATOCRIT 35 % (33-45); HEMOGLOBIN 11.7 g/dL (11.5-14.8); LYMPHOCYTES # (AUTO) 0.7 /CMM (0.8-4.8); LYMPHOCYTES % (AUTO) 2.4 % (20.0-44.0); MEAN CORPUSCULAR HGB CONC 33 g/dl (31.0-36.0); MEAN CORPUSCULAR VOLUME 92 fL (82-100); MONOCYTES # (AUTO) 1.5 /CMM (0.1-1.30); MONOCYTES % (AUTO) 5.6 % (2.0-12.0); NEUTROPHILS # (AUTO) 25.1 /CMM (1.8-8.9); NEUTROPHILS % (AUTO) 91.9 % (43.0-81.0); RED BLOOD CELL COUNT(AUTO) 3.86 MIL/uL (4.0-5.2); WHITE BLOOD COUNT (AUTO) 27.3 K/uL (4.3-11.0)
[2020-09-30 04:50] LABS: CALCIUM, SERUM 7.8 mg/dL (8.5-10.1); CARBON DIOXIDE 34 mmol/L (21-32); CHLORIDE 100 mmol/L (98-107); CREATININE 0.8 mg/dL (0.6-1.3); GLUCOSE 201 mg/dL (74-106); MAGNESIUM 1.9 mg/dL (1.8-2.4); PHOSPHORUS 2.1 mg/dL (2.5-4.9); POTASSIUM 3.3 mmol/L (3.5-5.1); SODIUM SERUM 137 mmol/L (136-145); UREA NITROGEN, BLOOD 27 mg/dL (7-18)
[2020-09-30 04:56] LABS: PLATELET COUNT (AUTO) 98 /CMM (150-450)
[2020-09-30] MEDS: IV D5W 1,000 ML IV PRN ×2 (05:45→21:30)
[2020-09-30] MEDS: VANCOMYCIN 0.75 GM in IV D5W 250 ML IV SCH (05:45)
[2020-09-30] MEDS: PYRIDOSTIGMINE BROMIDE 60 MG TABLET PO SCH ×4 (05:47→17:21)
--- NOTE | 2020-09-30 07:40 | NUR ---
WOUND CARE CONSULT: PT PRESENTS WITH VERY BONY SACRAL AREA, PRESENT ON ADMISSION. RECOMMENDATIONS MADE FOR SKIN PROTECTION. DISCUSSED WITH NURSING STAFF. CURRENT ADIS SCORE IS 14. BECK CHAMPION. IN AGREEMENT WITH PLAN OF CARE. Addendum: 09/30/20 at 0741 by JESSICA NEGRETE WNDNU Amended: Links added.
--- NOTE | 2020-09-30 07:48 | NUR ---
RN OPENING NOTE: RECEIVED PATIENT IN BED THIS MORNING. PATIENT IS ALERT X2. SR IN THE 90S NOTED ON BEDSIDE MONITOR. NO SIGNS OF ACUTE DISTRESS NOTED AT THIS TIME. SATING WELL ON HI FLOW. NGT ON TF. SOLARES DRAINING URINE. LUIS ALFREDO MIDLINE FLUSHING WELL, C/D/I, NO SIGNS OF COMPLICATIONS NOTED. SAFETY MEASURES IMPLEMENTED, BED IN LOWEST POSITION, LOCKED, SIDE RAILS UP, CALL LIGHT WITHIN REACH. WILL CONTINUE TO MONITOR PATIENT FOR CHANGES.
[2020-09-30] MEDS ORDERED: POTASSIUM CHLORIDE 20 MEQ POWDER PACKET GT ONE (08:30)
[2020-09-30] MEDS: AMLODIPINE BESYLATE 5 MG TABLET NG SCH (08:31)
[2020-09-30] MEDS: methylPREDNISolone SOD SUCC 125 MG/2ML VIAL IV SCH (08:32)
[2020-09-30] MEDS: CEFEPIME 2 GM in IV D5W 100 ML IV SCH ×2 (08:39→21:30)
[2020-09-30] MEDS: diphenhydrAMINE HCL 25 MG CAPSULE PO SCH (10:47)
[2020-09-30] MEDS: ACETAMINOPHEN 325 MG TABLET PO SCH (10:47)
[2020-09-30] MEDS: IMMUNE GLOBULIN 10% IV SCH (11:47)
[2020-09-30] MEDS ORDERED: NEUTRA PHOS 1 POWD.PACKET GT ONE (14:00)
[2020-09-30] MEDS ORDERED: LORAZEPAM INJ 2 MG/ML VIAL IV ONE (14:00)
[2020-09-30] MEDS: METOCLOPRAMIDE HCL 10 MG/2 ML VIAL IV PRN (14:04)
[2020-09-30] MEDS ORDERED: IMMUNE GLOBULIN 10 GM/100 ML VIAL IV ONE (14:26)
--- NOTE | 2020-09-30 17:32 | NUR ---
MESTINON ALREADY GIVEN AND TOO CLOSE TO 1800 DOSE
--- NOTE | 2020-09-30 19:16 | NUR ---
RN CLOSING NOTE: PATIENT REMAINS IN BED. NO SIGNS OF ACUTE DISTRESS NOTED AT THIS TIME. SR IN THE 80S NOTED ON BEDSIDE MONITOR. SAFETY MEASURES IMPLEMENTED, BED IN LOWEST POSITION, LOCKED, SIDE RAILS UP, CALL LIGHT WITHIN REACH. WILL ENDORSE TO ONCOMING SHIFT RN FOR CONTINUITY OF CARE.
[2020-10-01] VITALS (26 sets, daily range): BP systolic 107–139; BP diastolic 52–71
[2020-10-01] MEDS: SUCRALFATE 1 G/10 ML UDC NG SCH ×4 (00:10→17:15)
[2020-10-01] MEDS: PYRIDOSTIGMINE BROMIDE 60 MG TABLET PO SCH ×4 (00:11→17:15)
[2020-10-01] MEDS: IPRATROPIUM NEB FS 0.5 MG/2.5 ML AMPUL.NEB NEB SCH ×6 (03:30→21:41)
[2020-10-01] MEDS: ALBUTEROL HALF STRENGTH 1.25 MG/3 ML VIAL.NEB NEB SCH ×6 (03:30→21:41)
--- NOTE | 2020-10-01 07:30 | NUR ---
RN OPENING NOTE: RECEIVED PATIENT IN BED THIS MORNING. PATIENT IS ALERT X2 WITH EPISDOES OF CONFUSION. SR IN THE 80S NOTED ON BEDSIDE MONITOR. NO SIGNS OF ACUTE DISTRESS NOTED AT THIS TIME. SATING WELL ON HI FLOW. NGT ON TF. SOLARES DRAINING URINE. LUIS ALFREDO MIDLINE FLUSHING WELL, C/D/I, NO SIGNS OF COMPLICATIONS NOTED. SAFETY MEASURES IMPLEMENTED, BED IN LOWEST POSITION, LOCKED, SIDE RAILS UP, CALL LIGHT WITHIN REACH. WILL CONTINUE TO MONITOR PATIENT FOR CHANGES.
[2020-10-01 08:54] LABS: BASOPHILS % (AUTO) 0.2 % (0.0-2.0); HEMATOCRIT 30 % (33-45); HEMOGLOBIN 9.9 g/dL (11.5-14.8); LYMPHOCYTES # (AUTO) 0.5 /CMM (0.8-4.8); LYMPHOCYTES % (AUTO) 2.4 % (20.0-44.0); MEAN CORPUSCULAR HGB CONC 33 g/dl (31.0-36.0); MEAN CORPUSCULAR VOLUME 93 fL (82-100); MONOCYTES # (AUTO) 1.2 /CMM (0.1-1.30); MONOCYTES % (AUTO) 6.2 % (2.0-12.0); NEUTROPHILS # (AUTO) 17.6 /CMM (1.8-8.9); NEUTROPHILS % (AUTO) 91.2 % (43.0-81.0); PLATELET COUNT (AUTO) 113 /CMM (150-450); RED BLOOD CELL COUNT(AUTO) 3.24 MIL/uL (4.0-5.2); WHITE BLOOD COUNT (AUTO) 19.3 K/uL (4.3-11.0)
[2020-10-01] MEDS: ONDANSETRON HCL/PF 4 MG/2 ML VIAL IVP PRN (09:00)
[2020-10-01] MEDS: CEFEPIME 2 GM in IV D5W 100 ML IV SCH ×2 (09:00→20:35)
[2020-10-01] MEDS: AMLODIPINE BESYLATE 5 MG TABLET NG SCH (09:01)
[2020-10-01] MEDS: methylPREDNISolone SOD SUCC 40 MG/ML VIAL IV SCH (09:01)
[2020-10-01 09:29] LABS: ABG PCO2 44.6 mmHg (35.0-45.0); ABG PH 7.503 (7.350-7.450); ABG PO2 48.4 mmHg (75.0-100.0); AaDO2 221.7 mmHg; COHb 0.3 % (0.5-1.5); MetHb 0.3 % (0.0-1.5); O2Hb 85.5 % (94.0-97.0); SITE, ABG Left Brachial; VENT MODE, BG Nasal Cannula
[2020-10-01] MEDS: ACETAMINOPHEN 325 MG TABLET PO SCH (10:48)
[2020-10-01] MEDS: diphenhydrAMINE HCL 25 MG CAPSULE PO SCH (10:49)
[2020-10-01] MEDS: IMMUNE GLOBULIN 10% IV SCH ×2 (10:51)
[2020-10-01] MEDS: METOCLOPRAMIDE HCL 10 MG/2 ML VIAL IV PRN (13:07)
--- NOTE | 2020-10-01 19:36 | NUR ---
KILN PUSHER OPENING NOTES: Rec'd pt in bed, asleep, easily arousable. On 15LPM nonrebreather mask, tolerating well. No SOB or resp distress noted. A&Ox2-3 w/ episodes of confusion. SR on tele monitor. LUIS ALFREDO midline patent and flushed w/ D5W infusing at 50ml/hr. Dressing c/d/i. NGT patent and flushed /w minimal residual noted. Jevity infusing at 20ml/hr, tolerating feeding well. Carvalho catheter patent and draining urine via gravity. Safety measures in place. Will continue to monitor. Addendum: 10/01/202027 by MARCELLA FONSECA RN Pt on simple mask, not nonrebreather. Addendum: 10/01/20 at 2037 by MARCELLA FONSECA RN Jevity at 35ml/hr
--- NOTE | 2020-10-01 21:21 | NUR ---
RESTAURANT WORKER NOTE: Pt noted to be desaturating O2 at 82-84%. Changed pulse ox, elevated HOB and RT at bedside increased NC to 6LPM and mask to 20LPM. O2 sat now 87-88%. Will continue to monitor.
--- NOTE | 2020-10-01 22:53 | NUR ---
CURING BIN OPERATOR NOTE: Pt facetimed w/ psych md Dr. Nolan for her anxiety. Pt was refusing to answer majority of Dr. Nolan's questions because "too many questions are making me nervous. He's making my nervous by asking all of these questions". Explained to pt, Dr needs to ask these questions to better diagnose and treat her. Pt requesting that Dr. Nolan speak w/ her primary md Dr. Cunningham. Pt also stated she does not want too many Dr's from this hospital on her case. This nurse spoke w/ Dr. Nolan and relayed information. stated he will order Buspar for pt.
[2020-10-01] MEDS: IV D5W 1,000 ML IV PRN (23:00)
[2020-10-02] VITALS (39 sets, daily range): BP systolic 131–183; BP diastolic 57–103
[2020-10-02] MEDS: JEVITY 1.2 CAL 1,000 ML BOTTLE GT PRN (01:21)
[2020-10-02] MEDS: IPRATROPIUM NEB FS 0.5 MG/2.5 ML AMPUL.NEB NEB SCH ×6 (01:42→23:06)
[2020-10-02] MEDS: ALBUTEROL HALF STRENGTH 1.25 MG/3 ML VIAL.NEB NEB SCH ×6 (01:42→23:06)
[2020-10-02 04:58] LABS: BASOPHILS # (AUTO) 0.1 /CMM (0.0-0.2); BASOPHILS % (AUTO) 0.7 % (0.0-2.0); HEMATOCRIT 37 % (33-45); LYMPHOCYTES # (AUTO) 0.6 /CMM (0.8-4.8); LYMPHOCYTES % (AUTO) 3.3 % (20.0-44.0); MEAN CORPUSCULAR HGB CONC 33 g/dl (31.0-36.0); MEAN CORPUSCULAR VOLUME 93 fL (82-100); MONOCYTES # (AUTO) 1.5 /CMM (0.1-1.30); NEUTROPHILS # (AUTO) 16.3 /CMM (1.8-8.9); PLATELET COUNT (AUTO) 162 /CMM (150-450); RED BLOOD CELL COUNT(AUTO) 3.92 MIL/uL (4.0-5.2); WHITE BLOOD COUNT (AUTO) 18.5 K/uL (4.3-11.0)
[2020-10-02 05:07] LABS: CALCIUM, SERUM 8.5 mg/dL (8.5-10.1); CREATININE 0.8 mg/dL (0.6-1.3); MAGNESIUM 2.2 mg/dL (1.8-2.4); PHOSPHORUS 1.9 mg/dL (2.5-4.9); POTASSIUM 3.7 mmol/L (3.5-5.1)
[2020-10-02] MEDS: PYRIDOSTIGMINE BROMIDE 60 MG TABLET PO SCH ×6 (05:16→23:41)
[2020-10-02] MEDS: SUCRALFATE 1 G/10 ML UDC NG SCH ×6 (05:16→23:40)
--- NOTE | 2020-10-02 05:30 | NUR ---
TRIAL MGR NOTE: Pt noted to be anxious, worried about her health. Attempted to calm pt down and pt requested to be sitting in high lopez's and removed mask. Explained to pt risks and benefits of the mask and pt became more anxious, HR went up to 150's. Pt wanted to remain seated upright, no mask and do deep breathing exercises with nurse. RT at bedside as well who explained to the pt the importance of wearing the mask. Pt continued to refuse. After about 5 mins, pt was ok to put mask back on and felt more calm. HR back down to low 100s. O2 back up to 86-87%. Will continue to monitor.
--- NOTE | 2020-10-02 06:58 | NUR ---
DYE TUB OPERATOR CLOSING NOTES: Pt remains on 6LPM NC plus 20LPM mask. Tolerating well, no SOB or resp distress noted. SR/ST on tele monitor. NGT patent w/ feeding of Jevity infusing at 35ml/hr. LUIS ALFREDO midline patent w/ D5W infusing at 50ml/hr. Kept clean/dry. All due meds given as ordered. Safety measures in place. Will endorse to oncoming nurse for SYLVIE.
--- NOTE | 2020-10-02 07:05 | NUR ---
RN NOTES RECEIVED PT ON BED, ALERT/ ORIENTED x3-4, ON 5L O2 N/C AND 20 L SIMPLE FACE MASK, O2 87-88%, NO DISTRESS NOTED, ON TELE ST , NGT AT 35CC/HR RUNNING , TOLERATING WELL, NO RESIDUAL NOTED, D5W AT 50CC/HR RUNNING VIA R UPPER ARM MIDLINE , SITE, CLEAN, DRY AND INTACT, SR UP X3, CALL LIGHT WITHIN EASY REACH, BED LOCKED AND IN LOWEST POSITION, CONTINUE TO MONITOR
[2020-10-02] MEDS: CEFEPIME 2 GM in IV D5W 100 ML IV SCH (08:05)
[2020-10-02] MEDS: methylPREDNISolone SOD SUCC 40 MG/ML VIAL IV SCH (08:05)
[2020-10-02] MEDS: AMLODIPINE BESYLATE 5 MG TABLET NG SCH (08:06)
[2020-10-02] MEDS: busPIRone 5 MG TABLET PO SCH ×4 (08:30→17:20)
[2020-10-02] MEDS: ACETAMINOPHEN 325 MG TABLET PO SCH (09:51)
[2020-10-02] MEDS: diphenhydrAMINE HCL 25 MG CAPSULE PO SCH (09:51)
[2020-10-02] MEDS: IMMUNE GLOBULIN 10% IV SCH ×2 (10:38)
[2020-10-02] MEDS ORDERED: Sodium Phosphate 15 MMOL in IV NS 0.9% 245 ML IV SCH (12:00)
--- NOTE | 2020-10-02 13:00 | NUR ---
RN NOTES VIDEO SWALLOWING DONE , NGT AND TF D/AMAURI PER DR CROOK ORDER .
[2020-10-02] MEDS ORDERED: BARIUM SULFATE 148 GM SUSP.RECON PO ONE (15:37)
[2020-10-02] MEDS ORDERED: BARIUM SULFATE 240 ML ORAL.SUSP PO ONE (15:37)
--- NOTE | 2020-10-02 17:30 | NUR ---
RN NOTES PT REFUSED PO MEDS AT THIS TIME, REACHING REINFORCE REGARDING HOW IMPORTANT IS TO TAKE HER MEDS, PT STILL REFUSED.
--- NOTE | 2020-10-02 18:23 | NUR ---
RN NOTES PT REMAINS ON HIGH FLOW O2, O2 SAT WNL, NO DISTRESS NOTED, ON TELE SR HR IN 80'S , R UPPER ARM MIDLINE SITE CLEAN, DRY AND INTACT, D5W AT 50 C/HR RUNNING , SR UP x3, CALL LIGHT WITHIN EASY REACH , BED LOCKED AND IN LOWEST POSITION, WILL ENDORSE TO IN FLIGHT TECHNICIAN NURSE FOR CONTINUITY OF CARE
[2020-10-02] MEDS: IV D5W 1,000 ML IV PRN (19:20)
--- NOTE | 2020-10-02 19:35 | NUR ---
ICU/WHEEL SETTER RECEIVED REPORT FROM DAY NURSE. SEE FLOWSHEET FOR ASSESSMENT,THERE ARE A FEW SKIN ISSUES THAT ARE ADDRESSED ALONG WITH OUTCOMES FOR EACH. PT IS ALERT X2-3 WITH PERIODS OF CONFUSION.PT IS ON HIGH FLOW N/C, TOLERATING THIS SATURATION AT 88-89%. PT WAS TURN AND REPOSITION FOR COMFORT AND CARE. WILL CONTINUE TO MONITOR THIS PT. PT APPEARS TO HAVE SOME ANXIETY WITH YELLING OUT, RT WAS CALLED TO REPLACE THE WATER ON THE HIGH FLOW.
--- NOTE | 2020-10-02 19:50 | NUR ---
ICU/DOLL SURGEON 2009-BAG PRINTER IS IN ROOM DOING A R/O DVT ULTRASOUND, AWAIT FOR RESULTS. 2019-RT IN ROOM WITH SATURATION AT HIGH 80'S, INCREASED THE FIO2 TO 95% FROM 80% DUE TO SATURATION AT 88%. SATURATION ONLY CAME UP TO LOW 90'S. ORDERING AN ABG AFTER DVT IS DONE.
--- NOTE | 2020-10-02 20:41 | NUR ---
ICU/BAGGER AND STOCK HANDLER HELPER 2024-PRN OCCUPATIONAL THERAPIST DID, ULTRASOUND FOUND RIGHT BRACHIAL VEIN DVT. THIS WAS JUST A PRELIMINARY, HOWEVER THE OFFICIAL REPORT IS YET TO COME IN. 2039-CALLED THE ONCALL MD BOSS ABOUT THIS NEW FINDS, SAID THAT HE WOULD LOOK OVER THIS. AND NO NEW ORDERS RECEIVED. 2040-ALSO MADE CHARGE NURSE AWARE OF THESE NEW FINDINGS.
--- NOTE | 2020-10-02 22:10 | NUR ---
CU/STEAM AND POWER SUPERINTENDENT PT WAS GIVEN PM CARE AT THIS TIME, WHICH SHE TOLERATED WELL. PT REMAINS ON CURRENT HIGH FLOW SETTING, WITH SATURATION AT 94-96%. PT WAS TURNED AND REPOSITIONED FOR COMFORT AND CARE. CALL LIGHT WITHIN REACH, NO ACUTE DISTRESS SEEN. WILL CONTINUE TO MONITOR THIS PT.
[2020-10-03] VITALS (21 sets, daily range): BP systolic 126–182; BP diastolic 78–96
--- NOTE | 2020-10-03 02:00 | NUR ---
ICU/GAS TURBINE POWERPLANT MECHANIC HELPER WENT IN TO TURN AND REPOSITION THIS PT HOWEVER SHE REFUSED TO DO SO, SAID THAT SHE WAS TIRED AND SLEEPING. NO ACUTE DISTRESS SEEN AT THIS TIME. CALL LIGHT WITHIN REACH.
[2020-10-03] MEDS: IPRATROPIUM NEB FS 0.5 MG/2.5 ML AMPUL.NEB NEB SCH ×5 (03:41→20:12)
[2020-10-03] MEDS: ALBUTEROL HALF STRENGTH 1.25 MG/3 ML VIAL.NEB NEB SCH ×5 (03:41→20:12)
--- NOTE | 2020-10-03 04:00 | NUR ---
ICU/CLINICAL REHAB SPECIALIST AM LABS WERE DONE AWAIT FOR ANY CRITICAL RESULTS.
[2020-10-03 04:35] LABS: BASOPHILS # (AUTO) 0.2 /CMM (0.0-0.2); BASOPHILS % (AUTO) 1.2 % (0.0-2.0); EOSINOPHILS % (AUTO) 0.6 % (0.0-6.0); HEMATOCRIT 33 % (33-45); HEMOGLOBIN 10.7 g/dL (11.5-14.8); LYMPHOCYTES # (AUTO) 1.4 /CMM (0.8-4.8); LYMPHOCYTES % (AUTO) 9.9 % (20.0-44.0); MEAN CORPUSCULAR HGB CONC 33 g/dl (31.0-36.0); MEAN CORPUSCULAR VOLUME 92 fL (82-100); MONOCYTES # (AUTO) 0.5 /CMM (0.1-1.30); MONOCYTES % (AUTO) 3.3 % (2.0-12.0); NEUTROPHILS # (AUTO) 11.9 /CMM (1.8-8.9); PLATELET COUNT (AUTO) 188 /CMM (150-450); RED BLOOD CELL COUNT(AUTO) 3.57 MIL/uL (4.0-5.2); WHITE BLOOD COUNT (AUTO) 14.1 K/uL (4.3-11.0)
[2020-10-03 04:50] LABS: CALCIUM, SERUM 8.3 mg/dL (8.5-10.1); CARBON DIOXIDE 37 mmol/L (21-32); CHLORIDE 100 mmol/L (98-107); CREATININE 0.7 mg/dL (0.6-1.3); GLUCOSE 129 mg/dL (74-106); MAGNESIUM 1.7 mg/dL (1.8-2.4); PHOSPHORUS 2.6 mg/dL (2.5-4.9); POTASSIUM 3.3 mmol/L (3.5-5.1); SODIUM SERUM 141 mmol/L (136-145); UREA NITROGEN, BLOOD 18 mg/dL (7-18)
[2020-10-03] MEDS: PYRIDOSTIGMINE BROMIDE 60 MG TABLET PO SCH ×3 (05:28→17:18)
[2020-10-03] MEDS: SUCRALFATE 1 G/10 ML UDC NG SCH ×4 (05:28→23:08)
--- NOTE | 2020-10-03 05:30 | NUR ---
ICU/HEATING AND VENTILATING DRAFTER PT WAS GIVEN AM CARE AT THIS TIME, WHICH SHE TOLERATED WELL. PT REMAINS ON CURRENT HIGH FLOW SETTING, WITH SATURATION AT 90-94%. PT WAS TURNED AND REPOSITIONED FOR COMFORT AND CARE. CALL LIGHT WITHIN REACH, NO ACUTE DISTRESS SEEN. WILL CONTINUE TO MONITOR THIS PT
[2020-10-03] MEDS ORDERED: Magnesium 1GM/D5W 100ML PREMIX 100 ML IV SCH (09:00)
[2020-10-03] MEDS: POTASSIUM CHLORIDE 20 MEQ TAB.PRT.SR PO SCH ×2 (09:15→10:43)
[2020-10-03] MEDS: AMLODIPINE BESYLATE 5 MG TABLET NG SCH (09:16)
[2020-10-03] MEDS: busPIRone 5 MG TABLET PO SCH ×3 (09:16→17:17)
[2020-10-03] MEDS: methylPREDNISolone SOD SUCC 40 MG/ML VIAL IV SCH (09:16)
[2020-10-03] MEDS: ACETAMINOPHEN 325 MG TABLET PO SCH (10:10)
[2020-10-03] MEDS: diphenhydrAMINE HCL 25 MG CAPSULE PO SCH (10:10)
[2020-10-03] MEDS: IMMUNE GLOBULIN 10% IV SCH ×2 (10:43)
[2020-10-03] MEDS: ENOXAPARIN SODIUM 60 MG/0.6 ML DISP.SYRIN SQ SCH (13:58)
[2020-10-03] MEDS: SOD FERRIC GLUC 125 MG in IV NS 0.9% 100 ML IV SCH (14:47)
[2020-10-03] MEDS: IV D5W 1,000 ML IV PRN (17:12)
--- NOTE | 2020-10-03 19:25 | NUR ---
RN NOTE PATIENT ARRIVED TO UNIT FROM ICU AROUND THIS TIME. PATIENT IS A&O X3. ABLE TO MAKE NEEDS KNOWN. BREATHING IS EVEN AND UNLABORED, NO SOB NOTED AT THIS TIME. ON 40 LITERS HIGH FLOW VIA T-PIECE. IV ON LUIS ALFREDO MIDLINE IS CLEAN, DRY, AND PATENT. IV HYDRATION D5W RUNNING AT 50ML/HR. ON SOLARES CATH, URINE IS MILDLY CLOUDY AND YELLOW IN COLOR. ON PUREED DIET. MOTIVATED TO SELF CARE. IN NO APPARENT DISTRESS NOTED AT THIS TIME. CALL LIGHT IS WITHIN EASY REACH. WILL CONTINUE TO MONITOR.
[2020-10-03] MEDS: LORAZEPAM 1 MG TABLET PO PRN (23:08)
--- NOTE | 2020-10-03 23:45 | NUR ---
RN NOTE PATIENT COMPLAINED OF ANXIETY AROUND THIS TIME. INFORMED ON-CALL , DR. BOSS. RECEIVED NEW ORDER FOR ATIVAN 0.5 MG PO Q6H PRN. ORDER NOTED AND CARRIED OUT. WILL CONTINUE TO MONITOR.
[2020-10-04] VITALS (8 sets, daily range): BP systolic 121–151; BP diastolic 64–79
[2020-10-04] MEDS: IPRATROPIUM NEB FS 0.5 MG/2.5 ML AMPUL.NEB NEB SCH ×6 (00:09→20:03)
[2020-10-04] MEDS: ALBUTEROL HALF STRENGTH 1.25 MG/3 ML VIAL.NEB NEB SCH ×6 (00:09→20:03)
[2020-10-04] MEDS ORDERED: PYRIDOSTIGMINE BROMIDE 60 MG TABLET ONE (00:21)
[2020-10-04] MEDS: PYRIDOSTIGMINE BROMIDE 60 MG TABLET PO SCH ×4 (00:27→17:42)
--- NOTE | 2020-10-04 00:27 | NUR ---
RN NOTE PATIENT'S MESTINON MED NOT AVAILABLE IN BOTH 3 WEST OMN[address]LL AND PATIENT'S CASSETTE BOX. CALLED HEAVY EQUIPMENT RENTAL ASSOCIATE SHAHNAZ AND OBTAINED MED FROM HER.
[2020-10-04] MEDS: ENOXAPARIN SODIUM 60 MG/0.6 ML DISP.SYRIN SQ SCH ×2 (00:28→12:54)
[2020-10-04] MEDS: SUCRALFATE 1 G/10 ML UDC NG SCH ×3 (05:33→17:42)
--- NOTE | 2020-10-04 05:34 | NUR ---
RN NOTE - MESTINON MED NOT AVAILABLE PATIENT'S MESTINON 120 MG MEDICATION IS NOT AVAILABLE. TRIED BOTH OMNICELL, CHECKED CASSETTE BOX IN MED ROOM, AND CALLED TEST DRILLER SHAHNAZ. MED NOT AVAILABLE AT THIS TIME.
[2020-10-04] MEDS: IV D5W 1,000 ML IV PRN (05:41)
[2020-10-04] MEDS: LORAZEPAM 1 MG TABLET PO PRN (06:20)
--- NOTE | 2020-10-04 06:30 | NUR ---
RT NOTE INCREASED FIO2 TO 60%. PT STATES SHE'S ANXIOUS. RN TITA @ BEDSIDE. WILL ENDORSE TO DAY SHIFT RT.
--- NOTE | 2020-10-04 07:00 | NUR ---
RN NOTE RECEIVED PT A&OX3, ABLE TO VERBALIZE NEEDS AND UNDERSTAND INSTRUCTIONS WELL. BREATHING IS EVEN AND UNLABORED. PT IS CURRENT HIGH FLOW OXYGEN 60LPM, SATURATING AT 98%. MIDLINE PRESENT ON THE RIGHT UPPER ARM AND FLUSHES WELL. CARDIAC MONITORING SHOWS SR WITH [address]. URINE IS CLEAR, YELLOW, AND CLEARING TO GRAVITY. BED IS LOW WITH BED RAILS UP. CALL LIGHT IN REACH. WILL CONTINUE TO MONITOR
--- NOTE | 2020-10-04 07:03 | NUR ---
RN NOTE PATIENT REMAINED STABLE THROUGHOUT THE NIGHT. RT INCREASES O2 HIGH FLOW TO 60 LITERS PER PATIENT COMPLAINED OF ANXIETY. DUE MEDS GIVEN AND TOLERATED WELL. PATIENT KEPT CLEAN, DRY, AND COMFORTABLE. WILL ENDORSE TO AM SHIFT RN FOR CONTINUATION OF CARE.
[2020-10-04 08:07] LABS: CALCIUM, SERUM 8.5 mg/dL (8.5-10.1); CREATININE 0.7 mg/dL (0.6-1.3); POTASSIUM 3.4 mmol/L (3.5-5.1)
[2020-10-04] MEDS: busPIRone 5 MG TABLET PO SCH ×3 (08:46→17:42)
[2020-10-04] MEDS: AMLODIPINE BESYLATE 5 MG TABLET NG SCH (08:47)
[2020-10-04] MEDS ORDERED: methylPREDNISolone SOD SUCC 40 MG/ML VIAL IV SCH (09:00)
[2020-10-04 09:43] LABS: BASOPHILS % (AUTO) 0.2 % (0.0-2.0); EOSINOPHILS % (AUTO) 0.2 % (0.0-6.0); HEMATOCRIT 33 % (33-45); HEMOGLOBIN 10.9 g/dL (11.5-14.8); LYMPHOCYTES % (AUTO) 8.8 % (20.0-44.0); MEAN CORPUSCULAR HGB CONC 33 g/dl (31.0-36.0); MEAN CORPUSCULAR VOLUME 93 fL (82-100); MONOCYTES # (AUTO) 1.4 /CMM (0.1-1.30); MONOCYTES % (AUTO) 11.6 % (2.0-12.0); NEUTROPHILS # (AUTO) 9.4 /CMM (1.8-8.9); NEUTROPHILS % (AUTO) 79.2 % (43.0-81.0); PLATELET COUNT (AUTO) 231 /CMM (150-450); RED BLOOD CELL COUNT(AUTO) 3.59 MIL/uL (4.0-5.2); WHITE BLOOD COUNT (AUTO) 11.9 K/uL (4.3-11.0)
--- NOTE | 2020-10-04 10:45 | NUR ---
RN RIGHT BRACHIAL VEIN THROMBUS THE PATIENT IS SEEN AND EXAMINED BY DR ANTONIO AND DR IS MADE AWARE OF 10/02/20 STUDY THAT SHOWED THROMBUS RIGHT BRACHIAL VEIN AND THAT THE PATIENT IS RIGHT UPPER ARM MIDLINE WHICH IS BEING USED. THE PATIENT IS ON LEVONOX 60 MG Q12HR. PER MARISELA NO NEW ORDERS AND IT IS OK TO KEEP AND USE RIGHT UPPER ARM MIDLINE.
[2020-10-04] MEDS ORDERED: POTASSIUM CHLORIDE 20 MEQ POWDER PACKET PO SCH (11:00)
[2020-10-04] MEDS: SOD FERRIC GLUC 125 MG in IV NS 0.9% 100 ML IV SCH (14:40)
--- NOTE | 2020-10-04 18:02 | NUR ---
RN CLOSING NOTE PATIENT IN BED, NO SIGNS OF DISTRESS. PATIENT STATES NO PAIN PRESENT BREATHING IS UNLABORED AND EVEN. NASAL CANNULA PRESENT WITH 6L. PIVOT MAKER READS SR WITH 95 BPM. SOLARES CATHETER IN PLACE DRAINING WELL WITH CLEAR YELLOW URINE. PT TOLERATED CRUSHED MEDS WELL WITH APPLESAUCE. BED SET IN LOWEST POSITION WITH BED RAILS UP. CALL LIGHT WITHIN REACH
--- NOTE | 2020-10-04 20:30 | NUR ---
CATERERS HELPER: RECEIVED REPORT FROM MUKESH RN AT 2004. PT IN BED, A/O X3 WITH PERIODS OF FORGETFULNESS. CURRENTLY ON 6L OXYGEN VIA NC RESPIRATIONS EVEN AND UNLABORED. SPO2 MONITORING, ON TELE SINUS RHYTHM HR 65. PT DENIES ANY PAIN OR DISCOMFORT AT THIS TIME. LUIS ALFREDO MIDLINE IN PLACED, PATENT AND FLUSHING WELL, INFUSING WITH D5W AT 50ML/HR. PER REPORT, PT ON HIGH FLOW DURING THE DAY, AND THEN SWITCH TO NASAL CANNULA, ORDER FROM PULMO THAT IF PT'S SPO2 START TO DROP, PT NEEDS TO GO BACK TO HIGH FLOW. ON VARGAS MATTRESS. SCD IN USED. SAFETY PRECAUTIONS FOR FALL INITIATED, ASPIRATION PRECAUTION INITIATED, WILL MONITOR PT ACCORDINGLY.
[2020-10-05] VITALS: BP 140/67
[2020-10-05] MEDS: SUCRALFATE 1 G/10 ML UDC NG SCH ×4 (00:48→17:37)
[2020-10-05] MEDS: PYRIDOSTIGMINE BROMIDE 60 MG TABLET PO SCH ×4 (00:48→17:37)
[2020-10-05] MEDS: ENOXAPARIN SODIUM 60 MG/0.6 ML DISP.SYRIN SQ SCH ×2 (00:49→13:08)
--- NOTE | 2020-10-05 00:58 | NUR ---
RN NOTES: ALL DUE MEDS ADMINISTERED. PT ABLE TO SWALLOW MEDICATION. CRUSHED MEDS MIXED WITH APPLE SAUCE. MEDICATION COUNSELLING PROVIDED TO PT.
[2020-10-05] MEDS: ALBUTEROL HALF STRENGTH 1.25 MG/3 ML VIAL.NEB NEB SCH ×7 (01:27→23:29)
[2020-10-05] MEDS: IPRATROPIUM NEB FS 0.5 MG/2.5 ML AMPUL.NEB NEB SCH ×7 (01:28→23:30)
[2020-10-05 04:00] VITALS: BP 125/70
[2020-10-05] MEDS: IV D5W 1,000 ML IV PRN (04:16)
--- NOTE | 2020-10-05 06:54 | NUR ---
end of shift rpeort: remains a/o x3 with episode of confusion at times. tolerated on 6l oxygen via nc respirations even nd unlabored. remains on continuous pulse oximetry spo2 ranging 95-97%. SINUS RHYTHM WITH ST DEPRESSION HR 77. jonelle midline remains patent and flushing well, infusing with d5w at 50ml/hr. no s/s of iv infiltration noted. ble and bue offloaded on pillows. remains afebrile, no aspiration noted throughout the shift. plan of care: rodriguez eval, oxygen tyitration, continue mestinon per md, may consider bronchoscopy for possible foreign body aspiration in lung when hemodynamically stable. safety precautions for fall initiated, call light in reach, will endorse to day rn for katheryn
[2020-10-05 07:29] LABS: BASOPHILS % (AUTO) 0.2 % (0.0-2.0); EOSINOPHILS % (AUTO) 0.1 % (0.0-6.0); HEMATOCRIT 30 % (33-45); LYMPHOCYTES # (AUTO) 1.1 /CMM (0.8-4.8); LYMPHOCYTES % (AUTO) 9.9 % (20.0-44.0); MEAN CORPUSCULAR HGB CONC 33 g/dl (31.0-36.0); MEAN CORPUSCULAR VOLUME 93 fL (82-100); MONOCYTES # (AUTO) 1.3 /CMM (0.1-1.30); MONOCYTES % (AUTO) 12.4 % (2.0-12.0); NEUTROPHILS # (AUTO) 8.3 /CMM (1.8-8.9); NEUTROPHILS % (AUTO) 77.4 % (43.0-81.0); PLATELET COUNT (AUTO) 234 /CMM (150-450); RED BLOOD CELL COUNT(AUTO) 3.23 MIL/uL (4.0-5.2); WHITE BLOOD COUNT (AUTO) 10.7 K/uL (4.3-11.0)
[2020-10-05 07:30] LABS: CALCIUM, SERUM 8.4 mg/dL (8.5-10.1); CREATININE 0.7 mg/dL (0.6-1.3); POTASSIUM 3.4 mmol/L (3.5-5.1)
--- NOTE | 2020-10-05 08:00 | NUR ---
RN Opening note Received patient in bed AO x 3 able to responds all stimuli, denies pain or discomfort. Skin is warm to touch keep clean/dry, intact IV site running D5W at 75nl/hr. Pt is on continue to monitor O2sat and pulse, O2sat 93-90 at oxygen 5LPM, no sbo or distress observed. Kept bed locked with elevated HOB for ensure airway and aspiration precaution also lowest bed position for safety. Call light within reach will continue to monitor.
[2020-10-05] MEDS: methylPREDNISolone SOD SUCC 40 MG/ML VIAL IV SCH (09:09)
[2020-10-05] MEDS: busPIRone 5 MG TABLET PO SCH ×3 (09:09→17:37)
[2020-10-05] MEDS: POTASSIUM CHLORIDE 20 MEQ TAB.PRT.SR PO SCH ×3 (09:09→12:21)
[2020-10-05] MEDS: AMLODIPINE BESYLATE 5 MG TABLET NG SCH (09:10)
[2020-10-05] MEDS: SOD FERRIC GLUC 125 MG in IV NS 0.9% 100 ML IV SCH (15:16)
--- NOTE | 2020-10-05 18:26 | NUR ---
RN Closing note Patient in bed resting finished dinner plate, denies pain or distress. Skin is warm to touch intact midline on right upper arm. Respiratory even and unlabored with oxygen at 5LPM via n/c O2sat 93-95%. Kept locked bed with elevated HOB for ensure airway and aspiration precaution also lowest position for safety, call light within reach, will endorse joy operator helper.
--- NOTE | 2020-10-05 19:30 | NUR ---
MS RN NOTE: PATIENT RESTING IN BED, NO ACUTE DISTRESS NOTED. BREATHING EVEN AND UNLABORED, NO SOB NOTED. MIDLINE TO LUIS ALFREDO IN PLACE. BED LOCKED AND IN LOWEST POSITION, CALL LIGHT IN REACH, WILL CONTINUE TO MONITOR.
[2020-10-05 20:27] VITALS: BP 109/64
[2020-10-06] MEDS: PYRIDOSTIGMINE BROMIDE 60 MG TABLET PO SCH ×5 (00:19→23:53)
[2020-10-06] MEDS: SUCRALFATE 1 G/10 ML UDC NG SCH ×5 (00:19→23:53)
[2020-10-06] MEDS: ENOXAPARIN SODIUM 60 MG/0.6 ML DISP.SYRIN SQ SCH ×3 (00:20→23:55)
--- NOTE | 2020-10-06 00:30 | NUR ---
MS RN NOTE: PATIENT REQUESTING NOT TO BE WAKEN UP FOR NEXT BREATHING TREATMENT AT 0330. PATIENT DENIES AND SOB AT THIS TIME. WILL INFORM RT NOT TO WAKE PATIENT UP IF SLEEPING FOR NEXT BREATHING TREATMENT. WILL CONTINUE TO MONITOR.
[2020-10-06] MEDS: IPRATROPIUM NEB FS 0.5 MG/2.5 ML AMPUL.NEB NEB SCH ×7 (03:30→23:16)
[2020-10-06] MEDS: ALBUTEROL HALF STRENGTH 1.25 MG/3 ML VIAL.NEB NEB SCH ×7 (03:30→23:16)
--- NOTE | 2020-10-06 06:20 | NUR ---
MS RN NOTE: PATIENT RESTING IN BED, NO ACUTE DISTRESS NOTED. BREATHING EVEN AND UNLABORED, NO SOB NOTED. MIDLINE TO LUIS ALFREDO IN PLACE. BED LOCKED AND IN LOWEST POSITION, CALL LIGHT IN REACH, WILL ENDORSE TO DAY NURSE TO CONTINUE WITH PLAN OF CARE.
--- NOTE | 2020-10-06 06:45 | NUR ---
MS RN NOTE: PATIENT'S SISTER FILEMON FROM [place] CALLED AND LEFT HER CONTACT INFORMATION, . SHE WOULD LIKE TO BE UPDATED ON DISCHARGE PLANNING AND IF PATIENT WILL BE SENT TO A FACILITY. WILL ENDORSE TO DAY NURSE.
--- NOTE | 2020-10-06 07:20 | NUR ---
MS RN NOTES PATIENT IN BED ALERT ORIENTED X 3. NO ACUTE DISTRESS NOTED. NO SOB NOTED. BREATHING UNLABORED. DENIED ANY PAIN. IV ACCESS PATENT AND INTACT, NO REDNESS, NO SWELLING NOTED. HEAD OF BED ELEVATED. SAFETY MEASURES IN PLACE. CALL LIGHT WITHIN REACH. WILL CONTINUE TO MONITOR ACCORDINGLY.
[2020-10-06 07:26] LABS: CALCIUM, SERUM 8.5 mg/dL (8.5-10.1); CREATININE 0.8 mg/dL (0.6-1.3); POTASSIUM 3.6 mmol/L (3.5-5.1)
[2020-10-06 08:00] VITALS: BP 130/65
[2020-10-06] MEDS: methylPREDNISolone SOD SUCC 40 MG/ML VIAL IV SCH (09:24)
[2020-10-06] MEDS: busPIRone 5 MG TABLET PO SCH ×3 (09:25→17:57)
[2020-10-06] MEDS: AMLODIPINE BESYLATE 5 MG TABLET NG SCH (09:25)
--- NOTE | 2020-10-06 12:30 | NUR ---
MS RN NOTES PATIENT SEEN AND EVALUATED BYDR SALEEM JUDD WITH ORDER TO DOWNTITRATE TO 3LPM VIA NC AND DOWNTITRATE TOLERATED TO KEEP O2 SATURATION MORE THAT 90%, ORDER CLARIFIED AND READBACK WITH MD, NOTED AND CARRIED OUT. O2 PLACED ON 3LPM VUA NC PATIENT TOLERATING WELL SATURATING 94-97%. WILL CONTINUE TO MONITOR.
[2020-10-06] MEDS: SOD FERRIC GLUC 125 MG in IV NS 0.9% 100 ML IV SCH (15:51)
[2020-10-06 16:00] VITALS: BP 121/67
--- NOTE | 2020-10-06 19:00 | NUR ---
MS RN NOTES PATIENT IN BED ALERT ORIENTED X 3. NO ACUTE DISTRESS NOTED. NO SOB NOTED. BREATHING UNLABORED SATURATING 95-98 ON 3LPM VIA NASAL CANULA. DENIED ANY PAIN. IV ACCESS PATENT AND INTACT, NO REDNESS, NO SWELLING NOTED. HEAD OF BED ELEVATED.NEEDS ATTENDED AND ANTICIPATED. SAFETY MEASURES IN PLACE. CALL LIGHT WITHIN REACH. WILL ENDORSE TO NIGHT NURSE FOR CONTINUITY OF CARE.
--- NOTE | 2020-10-06 19:15 | NUR ---
MS RN PM OPENING NOTE REPORT RECIEVED FROM KAEL PIERCE. PATIENT IN BED ALERT ORIENTED X 3. NO ACUTE DISTRESS NOTED. NO SOB NOTED. BREATHING UNLABORED SATURATING 95 ON 2L VIA NASAL CANULA, WITH GOAL BEING TO TITRATE DOWN PER PULONOLOGIST. DENIED ANY PAIN. IV LUIS ALFREDO MIDLINE PATENT AND INTACT, NO REDNESS, NO SWELLING NOTED HL DRESSING INTACT. HEAD OF BED ELEVATED 30 DEGREES. SAFETY MEASURES IN PLACE. CALL LIGHT WITHIN REACH. WILL CONT TO MONITOR.
[2020-10-06 20:00] VITALS: BP 114/60
--- NOTE | 2020-10-06 20:02 | NUR ---
PER RESPIRATORY THERAPIST PT REFUSING MIDNIGHT BREATHING TREATMENT.
[2020-10-07] MEDS: ALBUTEROL HALF STRENGTH 1.25 MG/3 ML VIAL.NEB NEB SCH ×6 (03:30→23:30)
[2020-10-07] MEDS: IPRATROPIUM NEB FS 0.5 MG/2.5 ML AMPUL.NEB NEB SCH ×6 (03:30→23:30)
[2020-10-07] MEDS: PYRIDOSTIGMINE BROMIDE 60 MG TABLET PO SCH ×3 (05:48→18:41)
[2020-10-07] MEDS: SUCRALFATE 1 G/10 ML UDC NG SCH ×3 (05:48→18:41)
--- NOTE | 2020-10-07 07:20 | NUR ---
MS RN NOTES RECEIVED PATIENT IN BED ALERT AND AWAKE ORIENTED X4. HOB ELEVATED. ON O2 AT 1L/MIN VIA NC. NOS OB AT THIS TIME. ABLE TO VERBALIZE NEEDS. BED IN LOWEST POSITION, LOCKED. CALL LIGHT WITHIN REACH.
[2020-10-07 07:42] LABS: CALCIUM, SERUM 8.6 mg/dL (8.5-10.1); CREATININE 0.8 mg/dL (0.6-1.3); POTASSIUM 3.3 mmol/L (3.5-5.1)
[2020-10-07 08:00] VITALS: BP 132/69
--- NOTE | 2020-10-07 08:48 | NUR ---
MS RN NOTES PATIENT OFF UNIT, WENT TO CT.
--- NOTE | 2020-10-07 09:31 | NUR ---
MS RN NOTES PATIENT RETURNED TO UNIT FROM CT.
[2020-10-07] MEDS: methylPREDNISolone SOD SUCC 40 MG/ML VIAL IV SCH (09:58)
[2020-10-07] MEDS: AMLODIPINE BESYLATE 5 MG TABLET NG SCH (09:59)
[2020-10-07] MEDS: busPIRone 5 MG TABLET PO SCH ×3 (09:59→17:00)
[2020-10-07] MEDS ORDERED: POTASSIUM CHLORIDE 20 MEQ TAB.PRT.SR PO SCH (10:00)
[2020-10-07 12:16] LABS: BASOPHILS # (AUTO) 0.1 /CMM (0.0-0.2); EOSINOPHILS % (AUTO) 0.7 % (0.0-6.0); HEMATOCRIT 33 % (33-45); HEMOGLOBIN 10.7 g/dL (11.5-14.8); LYMPHOCYTES # (AUTO) 1.1 /CMM (0.8-4.8); LYMPHOCYTES % (AUTO) 11.6 % (20.0-44.0); MEAN CORPUSCULAR HGB CONC 33 g/dl (31.0-36.0); MEAN CORPUSCULAR VOLUME 93 fL (82-100); MONOCYTES # (AUTO) 1.2 /CMM (0.1-1.30); MONOCYTES % (AUTO) 12.6 % (2.0-12.0); NEUTROPHILS # (AUTO) 7.1 /CMM (1.8-8.9); NEUTROPHILS % (AUTO) 74.1 % (43.0-81.0); PLATELET COUNT (AUTO) 229 /CMM (150-450); WHITE BLOOD COUNT (AUTO) 9.6 K/uL (4.3-11.0)
[2020-10-07] MEDS: ENOXAPARIN SODIUM 60 MG/0.6 ML DISP.SYRIN SQ SCH (12:58)
[2020-10-07] MEDS: SOD FERRIC GLUC 125 MG in IV NS 0.9% 100 ML IV SCH (14:00)
--- NOTE | 2020-10-07 15:16 | NUR ---
RT Note Patient refused treatment time and no distress on the patient HR 91 and SAT 98%
[2020-10-07 16:00] VITALS: BP 132/75
--- NOTE | 2020-10-07 19:15 | NUR ---
MS RN NOTES RECEIVED PATIENT IN BED ALERT AND AWAKE ORIENTED X4. HOB ELEVATED. ON O2 AT 2L/MIN VIA NC. NO S/S OF RESPIRATORY DISTRESS DURING THE SHIFT. RIGHT UPPER ARM MIDLINE INTACT AND PATENT. ABLE TO VERBALIZE NEEDS. BED IN LOWEST POSITION, LOCKED. CALL LIGHT WITHIN REACH. IN NO APPARENT DISTRESS.
--- NOTE | 2020-10-07 19:34 | NUR ---
MS RN OPENING NOTES PATIENT AWAKE IN BED. A/OX4. ON 2L NC; NO S/S OF ACUTE RESPIRATORY DISTRESS; BREATHING IS EVEN AND UNLABORED; CONTINUOUS SPO2 READING 94%. NO C/O PAIN. MIDLINE PRESENT ON RIGHT ARM, INTACT & PATENT, HEP LOCKED. SAFETY MEASURES IN PLACE AND PATIENT'S NEEDS MET. BED LOCKED, HOB ELEVATED, SIDE RAILS X2, CALL LIGHT WITHIN REACH. WILL CONTINUE TO MONITOR.
[2020-10-07 20:00] VITALS: BP 121/66
[2020-10-08] MEDS: PYRIDOSTIGMINE BROMIDE 60 MG TABLET PO SCH ×4 (00:43→17:28)
[2020-10-08] MEDS: SUCRALFATE 1 G/10 ML UDC NG SCH ×4 (00:43→17:28)
[2020-10-08] MEDS: ENOXAPARIN SODIUM 60 MG/0.6 ML DISP.SYRIN SQ SCH ×2 (00:44→12:44)
[2020-10-08] MEDS: IPRATROPIUM NEB FS 0.5 MG/2.5 ML AMPUL.NEB NEB SCH ×6 (03:30→22:57)
[2020-10-08] MEDS: ALBUTEROL HALF STRENGTH 1.25 MG/3 ML VIAL.NEB NEB SCH ×6 (03:30→22:58)
[2020-10-08 07:43] LABS: CALCIUM, SERUM 8.5 mg/dL (8.5-10.1); CREATININE 0.7 mg/dL (0.6-1.3); POTASSIUM 3.6 mmol/L (3.5-5.1)
--- NOTE | 2020-10-08 07:55 | NUR ---
MS RN CLOSING NOTES PATIENT AWAKE IN BED. A/OX4. ON 2L NC; NO S/S OF ACUTE RESPIRATORY DISTRESS; BREATHING IS EVEN AND UNLABORED; CONTINUOUS SPO2 READING 97%. NO C/O PAIN. MIDLINE PRESENT ON RIGHT ARM, INTACT & PATENT, HEP LOCKED. SAFETY MEASURES IN PLACE AND PATIENT'S NEEDS MET. BED LOCKED, HOB ELEVATED, SIDE RAILS X2, CALL LIGHT WITHIN REACH. ENDORSED TO DAY SHIFT RN PLAN OF CARE.
[2020-10-08 08:00] VITALS: BP 125/60
--- NOTE | 2020-10-08 08:00 | NUR ---
ms rn received on bed, awake,alert,oriented x4.not in any form of distress, respirations even and unlabored.no sob noted, lungs are clear,abdomen soft,positive bowel sounds,denies pain at this time will monitor patient.
[2020-10-08] MEDS: methylPREDNISolone SOD SUCC 40 MG/ML VIAL IV SCH (08:58)
[2020-10-08] MEDS: busPIRone 5 MG TABLET PO SCH ×3 (08:58→17:28)
[2020-10-08] MEDS: AMLODIPINE BESYLATE 5 MG TABLET NG SCH (08:59)
--- NOTE | 2020-10-08 09:00 | NUR ---
ms mojica breakfast served,due meds given,tolerated well.
--- NOTE | 2020-10-08 09:45 | NUR ---
ms rn was seen by luís beebe/ orders made and carried out.
--- NOTE | 2020-10-08 11:50 | NUR ---
ms rn was seen by pt,will monitor patient.
[2020-10-08] MEDS: SOD FERRIC GLUC 125 MG in IV NS 0.9% 100 ML IV SCH (14:39)
[2020-10-08 16:00] VITALS: BP 114/61
--- NOTE | 2020-10-08 18:16 | NUR ---
ms rn on bed, all needs attended.
--- NOTE | 2020-10-08 19:37 | NUR ---
MS RN OPENING NOTES PATIENT RECEIVED RESTING IN BED COMFORTABLY; A/OX4; PATIENT ON 2LPM VIA NC; TOLERATING WELL, BREATHING EVENLY AND UNLABORED; NO SOB NOTED; NO DISTRESS NOTED; PER AM SHIFT, PATIENT WAS TO BE D/C TO [place] [facility] BUT [facility] NEVER CALLED; CHARGE NURSES AWARE; PATIENT ABLE TO MAKE NEEDS KNOWN; R ARM MIDLINE, S/L INTACT, FLUSHING WELL; SAFETY PRECAUTIONS IMPLEMENTED; BED LOCKED IN LOW POSITION; SIDE RAILSX2; CALL LIGHT WITHIN REACH, WILL CONT TO MONITOR
[2020-10-08 20:00] VITALS: BP 117/59
[2020-10-09] MEDS: ENOXAPARIN SODIUM 60 MG/0.6 ML DISP.SYRIN SQ SCH ×2 (00:02→12:42)
--- NOTE | 2020-10-09 00:03 | NUR ---
MS RN NOTES PATIENT REFUSING SCHEDULED MEDS; PATIENT DOES NOT WANT TO BE BOTHERED AND PATIENT WOULD LIKE TO JUST SLEEP; RISKS AND BENEFITS DISCUSSED PATIENT STILL REFUSING; WILL CONT TO MONITOR
--- NOTE | 2020-10-09 02:04 | NUR ---
PROJECT SUPERINTENDENT NOTES PATIENT SPO2 MONITOR NOT-READING, BP MACHINE LEFT IN ROOM TO MONITOR SPO2; PATIENT COMPLAINING OF NOISES AND REQUESTING TO UNPLUG THE BP MACHINE FOR NOW; CHARGE NURSE AWARE; WILL CONTACT RT FOR PULSE OX MONITOR; WILL CONT TO MONITOR
--- NOTE | 2020-10-09 03:05 | NUR ---
MS RN NOTES PATIENT REQUESTED FOR BP MACHINE TO BE PLACED IN ROOM AGAIN FOR CONTINUOUS MONITORING
[2020-10-09] MEDS: ALBUTEROL HALF STRENGTH 1.25 MG/3 ML VIAL.NEB NEB SCH ×3 (03:30→11:01)
[2020-10-09] MEDS: IPRATROPIUM NEB FS 0.5 MG/2.5 ML AMPUL.NEB NEB SCH ×3 (03:30→11:01)
[2020-10-09] MEDS: SUCRALFATE 1 G/10 ML UDC NG SCH ×3 (06:07→12:41)
[2020-10-09] MEDS: PYRIDOSTIGMINE BROMIDE 60 MG TABLET PO SCH ×3 (06:07→12:41)
--- NOTE | 2020-10-09 06:30 | NUR ---
MS RN CLOSING NOTES PATIENT RESTING IN BED COMFORTABLY; A/OX4, BREATHING EVEN AND UNLABORED; TOLERATING 2LPM VIA NC WELL; SATTING 94-96%; NO SOB NOTED; NO DISTRESS NOTED; PATIENT REPORTED SHE WANTS TO REST AND DOES NOT WANT TO BE BOTHERED IF SLEEPING; WILL INFORM DAY SHIFT; ABLE TO MAKE NEEDS KNOWN; R UA MIDLINE INTACT AND PATENT, FLUSHING WELL; ALL NEEDS RENDERED; SAFETY PRECAUTIONS IMPLEMENTED; WILL ENDORSE SYLVIE TO ONCOMING SHIFT
[2020-10-09 08:00] VITALS: BP 123/58
--- NOTE | 2020-10-09 08:00 | NUR ---
RN Opening note Received patient in bed AO x 4 able to responds all stimuli, does no appears pain or discomfort. Skin is warm to touch keep clean/dry, intact midline on right upper arm with SL. Respiratory even and unlabored with oxygen at 2LPM O2sat 96%, no sob or distress observed continues monitor Pulsox. Kept bed locked with elevated HOB for ensure airway and aspiration precaution also lowest bed position for safety. Call light within reach will continue to monitor.
[2020-10-09 08:31] LABS: BASOPHILS % (AUTO) 0.5 % (0.0-2.0); EOSINOPHILS % (AUTO) 0.8 % (0.0-6.0); HEMATOCRIT 33 % (33-45); HEMOGLOBIN 10.7 g/dL (11.5-14.8); LYMPHOCYTES # (AUTO) 1.3 /CMM (0.8-4.8); LYMPHOCYTES % (AUTO) 15.1 % (20.0-44.0); MEAN CORPUSCULAR HGB CONC 33 g/dl (31.0-36.0); MEAN CORPUSCULAR VOLUME 93 fL (82-100); MONOCYTES # (AUTO) 0.9 /CMM (0.1-1.30); MONOCYTES % (AUTO) 9.7 % (2.0-12.0); NEUTROPHILS # (AUTO) 6.5 /CMM (1.8-8.9); NEUTROPHILS % (AUTO) 73.9 % (43.0-81.0); PLATELET COUNT (AUTO) 180 /CMM (150-450); RED BLOOD CELL COUNT(AUTO) 3.52 MIL/uL (4.0-5.2); WHITE BLOOD COUNT (AUTO) 8.8 K/uL (4.3-11.0)
[2020-10-09 08:41] LABS: CALCIUM, SERUM 8.3 mg/dL (8.5-10.1); CREATININE 0.7 mg/dL (0.6-1.3)
[2020-10-09] MEDS ORDERED: predniSONE 10 MG TABLET PO SCH (09:00)
[2020-10-09 09:53] VITALS: BP 123/58
[2020-10-09] MEDS: busPIRone 5 MG TABLET PO SCH ×2 (09:53→12:41)
[2020-10-09] MEDS: AMLODIPINE BESYLATE 5 MG TABLET NG SCH (09:53)
--- NOTE | 2020-10-09 13:37 | NUR ---
Patient transfer to [facility], given report Nay/KARI.
--- NOTE | 2020-10-09 14:36 | NUR ---
3EMTs picked up patient and given report, patient denies pain or distress in stable condition. Wound picture taken on sacral. Patient refused vaccine at this time.
[2020-10-09] MEDS ORDERED: ENSURE ENLIVE 237 ML LIQUID (VANILLA) PO SCH (17:00)
== END 2020-10-09 15:00 | disposition short-term general hospital (02) | DRG 207 ==
LOC: ER 14:05 → ICU 16:28 → TELE 10-03 20:00 → MED 10-05 11:28
PROVIDERS: ATTEND Family Medicine
PROC: 5A1955Z Respiratory Ventilation, Greater than 96 Consecutive Hours (ICD-10-PCS; principal; 2020-09-18)
PROC: 0BH18EZ Insertion of Endotracheal Airway into Trachea, Via Natural or Artificial Opening Endoscopic (ICD-10-PCS; 2020-09-18)
PROC: 05H933Z Insertion of Infusion Device into Right Brachial Vein, Percutaneous Approach (ICD-10-PCS; 2020-09-18)
DX: T17.890A Other foreign object in other parts of respiratory tract causing asphyxiation, initial encounter (principal); J69.0 Pneumonitis due to inhalation of food and vomit; J96.01 Acute respiratory failure with hypoxia; G70.01 Myasthenia gravis with (acute) exacerbation; K72.00 Acute and subacute hepatic failure without coma; N17.0 Acute kidney failure with tubular necrosis; J93.83 Other pneumothorax; R57.9 Shock, unspecified; E87.0 Hyperosmolality and hypernatremia; X58.XXXA Exposure to other specified factors, initial encounter; Y92.89 Other specified places as the place of occurrence of the external cause; D69.6 Thrombocytopenia, unspecified; E86.0 Dehydration; I10 Essential (primary) hypertension; Z88.6 Allergy status to analgesic agent; Z88.5 Allergy status to narcotic agent; Z79.899 Other long term (current) drug therapy; Y92.10 Unspecified residential institution as the place of occurrence of the external cause; E78.5 Hyperlipidemia, unspecified; Z95.1 Presence of aortocoronary bypass graft; Z20.828 Contact with and (suspected) exposure to other viral communicable diseases; Z79.52 Long term (current) use of systemic steroids; I25.10 Atherosclerotic heart disease of native coronary artery without angina pectoris; F41.9 Anxiety disorder, unspecified; D50.9 Iron deficiency anemia, unspecified; E04.1 Nontoxic single thyroid nodule; R91.1 Solitary pulmonary nodule; M89.9 Disorder of bone, unspecified; Z86.718 Personal history of other venous thrombosis and embolism; E87.6 Hypokalemia
CPT/HCPCS: 31720; 36410; 36415; 36600; 70490-TC; 71045-TC; 71250-TC; 74018; 74230-TC; 76536-TC; 76700-TC; 80048-TC; 80053-TC; 80061-TC; 80076-TC; 80202-TC; 81001; 82533; 82728-TC; 82784; 82803-TC; 82962-TC; 83010; 83520; 83540-TC; 83615-TC; 83735-TC; 84100-TC; 84155; 84165; 84439-TC; 84443-TC; 84478-TC; 84484-TC; 85025-TC; 85045-TC; 85396; 85730-TC; 86022; 86140-TC; 86225; 86235; 86256; 86334; 86431-TC; 86706; 86803; 86880-TC; 87040-TC; 87081-TC; 87086-TC; 87340; 92526; 92611-TC; 93307-TC; 93971-TC; 94002-TC; 94003-TC; 94760-TC; 94762-TC; 94799-TC; 97530-TC; 99082-TC; A4216; A4217; A4624; A9563; C9113; C9803; G0378; J0692; J0696; J1572; J1650; J1720; J2060; J2185; J2405; J2543; J2765; J2916; J2920; J2930; J3370; J3475; J3480; J3490; J7030; J7050; J7060; J7070; Q0163